=== PATIENT | female | born 1995 | race Caucasian/White ===

== ENCOUNTER 2016-03-25 10:19 | Day surgery (SDC) | payer OTHER ==
[2016-03-25] VITALS (33 sets, daily range): BP systolic 101–119; BP diastolic 56–76; PULSE 64–88; RESP 8–26; Ht 162.6 cm; Wt 45.9 kg
[~2016-03-25] VITALS: Ht 162.6 cm; Wt 45.9 kg
[~2016-03-25 10:19] MED LIST: ACET500C5 PO; AZIT250T94 PO; CEFAZOLIN 2 GM/50 ML (PMX) 50 ML IVPB SCH; D-ME473S2 PO; FER325 PO; LIPA1CAP6 PO; OMEP40CA6 PO; ONDA4TAB96 PO; SOD CHLORIDE 0.9% 1,000 ML IV SCH
[2016-03-25] MEDS ORDERED: BUPIVACAINE 0.25% (MPF) 30 ML INJ ONE (10:30)
[2016-03-25] MEDS ORDERED: FER325 PO (10:46)
[2016-03-25] MEDS ORDERED: FENTAnyl 50 MCG/ML VIAL ONE (12:32)
[2016-03-25] MEDS ORDERED: PROPOFOL 20 ML ONE (12:32)
[2016-03-25] MEDS ORDERED: SUCCINYLCHOLINE CHLORIDE 100 MG/5 ML SYG IV ONE (12:32)
[2016-03-25] MEDS ORDERED: ROCURONIUM 50 MG INJ ONE (12:32)
[2016-03-25] MEDS ORDERED: ONDANSETRON 4 MG INJ ONE (12:32)
[2016-03-25] MEDS ORDERED: CEFAZOLIN 1 GM INJ ONE (12:32)
[2016-03-25] MEDS ORDERED: DEXAMETHASONE 4 MG/ML 1 ML INJ ONE (12:34)
[2016-03-25] MEDS ORDERED: KETOROLAC 30 MG INJ ONE (12:40)
[2016-03-25] MEDS ORDERED: HYDROmorphONE (0.2 MG/ML) 10ML SYG IV PRN ×2 (13:30)
[2016-03-25] MEDS ORDERED: ONDANSETRON 4 MG INJ IV PRN ×2 (13:30→18:30)
[2016-03-25] MEDS ORDERED: FENTAnyl 50 MCG/ML VIAL IV PRN (13:30)
[2016-03-25] MEDS ORDERED: BUPIVACAINE 0.25% (MPF) 30 ML INJ INJ ONE (13:30)
[2016-03-25] MEDS ORDERED: MEPERIDINE 25 MG INJ IV PRN (13:30)
[2016-03-25] MEDS ORDERED: HYDROCODONE/APAP (5/325) TAB PO ONE (14:00)
[2016-03-25] MEDS: HYDROmorphONE (0.2 MG/ML) 10ML SYG IV PRN ×2 (14:12→14:27)
[2016-03-25] MEDS: FENTAnyl 50 MCG/ML VIAL IV PRN ×2 (14:32→15:23)
--- NOTE | 2016-03-25 15:49 | OPR ---
DATE OF OPERATION: 03/25/2016 INDICATION: This is a 20-year-old female with a history of gallstone pancreatitis. She is having e lective surgery to remove her gallbladder. Risks, alternatives, benefits and personnel were discuss ed with the patient. The patient expressed understanding and consents to the operation. PREOPERATIVE DIAGNOSES: Gallstone pancreatitis. POSTOPERATIVE DIAGNOSES: Gallstone pancreatitis. OPERATION: Laparoscopic cholecystectomy. SURGEON: Maritza Onofre MD SPECIMENS: Gallbladder. COMPLICATIONS: None. ANESTHESIA: General. PROCEDURE: The patient was taken to the OR and prepped and draped in the usual sterile fashion. Knapp rgical timeout was performed. IV antibiotics were given. Infraumbilical incision was made transver sely with a 15 blade. Dissection cautery was carried down to the fascia which was divided with curv ed Dowd scissors. An 0 Vicryl U-stitch was placed into the fascia. Balloon Andrew trocar was intro duced. Pneumoperitoneum was established. Midepigastric 12 mm optical trocar right upper quadrant. Five mm optical trocars are placed under direct visualization. Upon initial inspection, there were some adhesions to the gallbladder which were taken down bluntly. The cystic duct was identified. The critical view was established. The cystic duct and cystic artery are divided using a 35 mm Eche anika vascular load stapler. The gallbladder was taken off the gallbladder bed. There was good hemos tasis. Gallbladder was retrieved using an EndoCatch bag. Ports were removed under direct visualiza tion, 0 Vicryl U-stitch was tied down. Skin was closed using skin gordy. Local anesthesia was in jected. Dry dressing was applied. Dictated By: MARITZA ONOFRE MD SB/DANI Conf#: [id number] DID#: [id number]
[2016-03-25] MEDS ORDERED: HYDROmorphONE 1 MG/ML SYG IV PRN (18:20)
[2016-03-25] MEDS ORDERED: ACETAMINOPHEN 500 MG TAB PO PRN (18:30)
[2016-03-25] MEDS: D5W-0.45 NACL + KCL 20 MEQ 1,000 ML IV SCH (18:36)
--- NOTE | 2016-03-25 18:42 | HP ---
DATE OF ADMISSION: 03/25/2016 CHIEF COMPLAINT AND HISTORY OF PRESENT ILLNESS: The patient is a 21-year-old female with a history of recurrent biliary colic and possible gallstone pancreatitis. The patient was seen by Dr. Onofre as an outpatient and was diagnosed with gallstone pancreatitis. The patient was brought into hospital today. The patient underwent MRI of the abdomen on 07/17/2015 which revealed partially sludge-fill ed gallbladder. At that time there was unremarkable MRI appearance of the pancreas. The patient u nderwent laparoscopic cholecystectomy today and did have significant postoperative pain and therefor e could not be discharged home. The patient is being admitted for pain control and further manageme nt. The patient denied any chest pain. No reported shortness of breath, no reported fever or chill s. No recent episode of acute cholecystitis. No reported cough, headache, dizziness, syncope. REVIEW OF SYSTEMS: Rest of review of systems unremarkable. PAST MEDICAL HISTORY: As a child used to go to [facility] and had a diagnosis of ____ disease, but subseq uently told me that she does not have any chronic illnesses and has been ruled out for ____ disease and is not following up at [facility] anymore. MEDICATIONS: The patient was on iron supplement. ALLERGIES: PREVACID. SOCIAL HISTORY: No smoking, no alcohol. PHYSICAL EXAMINATION: GENERAL: The patient is conscious, awake, alert. VITAL SIGNS: Temperature 99, pulse 80, respirations 16, blood pressure 112/69, O2 sat 100% on room air. HEENT: No eye discharge or redness. Extraocular movement intact. Oropharynx clear. NECK: No mass. CHEST: Fairly clear. No use of accessory muscles. CARDIOVASCULAR: S1, S2 normal. No murmur. ABDOMEN: Soft. The patient is status post laparoscopic cholecystectomy. EXTREMITIES: No leg edema. NEUROLOGIC: The patient is awake, alert, fairly oriented with no gross focal deficit. LABORATORY DATA: Urine test negative. WBC 5.9, hemoglobin 10.8. Sodium 138, potassium 3 .9, BUN 12, creatinine 0.7. Coagulation profile normal. IMPRESSION: Symptomatic gallstones with history of gallstone pancreatitis, status post laparoscopic cholecystectomy. The patient will be started on clear liquid diet and will be given IV fluid, IV Toradol, IV Dilaudid, Tylenol and will use SCD For deep venous thrombosis prophylaxis. The patient is advised to continue followup with her PMD for anemia. Patient's diet will be advanced slowly. F gino recommendations will depend on patient's hospital course. The patient continues to do well. We will also start her on [place] in the a.m. and if her pain is well controlled with oral narcotics, she will be discharged home tomorrow. Dictated By: LINNEA GERBER/DANI Conf#: [id number] DID#: [id number]
[2016-03-25] MEDS: KETOROLAC 30 MG INJ IV PRN (20:25)
[2016-03-25] MEDS: HYDROmorphONE 1 MG/ML SYG IV PRN (22:27)
[2016-03-26] MEDS: HYDROmorphONE 1 MG/ML SYG IV PRN (02:34)
[2016-03-26 04:15] VITALS: BP 109/68; PULSE 80
[2016-03-26] MEDS: KETOROLAC 30 MG INJ IV PRN (04:24)
[2016-03-26] MEDS: D5W-0.45 NACL + KCL 20 MEQ 1,000 ML IV SCH ×2 (04:24→16:34)
--- NOTE | 2016-03-26 08:42 | PN ---
Date/Time of Note Date/Time of Note DATE: 03/26/16 TIME: 08:41 Assessment/Plan VTE Prophylaxis VTE Prophylaxis Intervention: ambulation, SCD's Lines/Catheters IV Catheter Type (from Nrsg): Peripheral IV Urinary Cath still in place: No Assessment/Plan Chief Complaint/Hosp Course s/p lap destiny admitted for pain control Problems: Assessment/Plan d/c today Subjective 24 Hr Interval Summary Free Text/Dictation pain control improved, doing well, tolerating diet Exam/Review of Systems Vital Signs Vitals Vital Signs Date Time Temp Pulse Resp B/P Pulse Ox O2 Delivery O2 Flow Rate FiO2 03/26/16 04:15 98.0 80 109/68 97 Room Air 03/25/16 23:30 18 03/25/16 22:00 2.0 Intake and Output 03/25/16 03/25/16 03/26/16 15:00 23:00 07:00 Intake Total 450 ml 1700 ml Output Total 5 ml Balance 445 ml 1700 ml Exam abdomen soft c/d/i Medications Medications Current Medications Potassium Chloride/Dextrose/ Sod Cl (D5-1/2ns + KCl 20 Meq) 1,000 ml @ 100 mls/ hr Q10H IV Last administered on 03/26/16 04:24; Admin Dose 100 MLS/HR; Start at 18:30 Ketorolac Tromethamine (Toradol) 30 mg Q6H PRN IV PAIN Last administered on 03/26 04:24; Admin Dose 30 MG; Start 03/25/16 at 18:30; Stop 03/28/16 at 18:29 Hydromorphone HCl (Dilaudid) 1 mg Q4H PRN IV PAIN Last administered on 02:34; Admin Dose 1 MG; Start 03/25/16 at 18:30 Acetaminophen (Tylenol Tab) 500 mg Q4H PRN PO PAIN AND OR ELEVATED TEMP; Start 03/25/16 at 18:30 Ondansetron HCl (Zofran Inj) 4 mg Q4H PRN IV NAUSEA AND/OR VOMITING Last administered on 03/25/16 20:24; Admin Dose 4 MG; Start 03/25/16 at 18:30 Acetaminophen/ Hydrocodone Bitart ([place] (5/325)) 1 tab Q4H PRN PO PAIN LEVEL 4 -6; Start 03/25/16 at 18:30 Hydromorphone HCl (Dilaudid) 0.5 mg Q4H PRN IV PAIN LEVEL 1-5 Last administered on 03/25/16t 18:37; Admin Dose 0.5 MG; Start 03/25/16 at 18:20 Lay HOLLINGSWORTH Mar 26, 2016 08:42
[2016-03-26] MEDS: HYDROCODONE/APAP (5/325) TAB PO PRN ×2 (08:44→16:33)
[2016-03-26 09:04] VITALS: BP 102/57; RESP 20
--- NOTE | 2016-03-26 17:18 | DS ---
Date/Time of Note Date/Time of Note DATE: 03/26/16 TIME: 17:18 Discharge Summary Admission/Discharge Info Admit Date/Time Discharge Date/Time Hospital Course s/p carlos dixon admitted for pain control Home Meds Reported Medications Ferrous Sulfate* (Ferrous Sulfate*) 325 Mg Tabec, 325 MG PO DAILY, TAB 03/25/16 Discontinued Reported Medications Ferrous Sulfate* (Ferrous Sulfate*) 325 Mg Tabec, 325 MG PO BID, TAB 08/13/15 Ondansetron Hcl* (Ondansetron Hcl*) 4 mg -ODT Tab.disper, 4 MG PO Q4H Y for NAUSEA AND OR VOMITING, TAB 08/13/15 Yuihtr-Ydaexevs-Nydnaia* (Creon DR* 24,000) 24,000 L-76,000-120,000 Unit Capsule.dr, 1 CAP PO WITH MEALS, CAP 08/13/15 Omeprazole* (Omeprazole*) 40 Mg Capsule.dr, 40 MG PO DAILY, CAP 11/06/14 Discontinued Scripts Acetaminophen* (Tylophen*) 500 Mg Capsule, 1 CAP PO Q6H Y for PAIN AND OR ELEVATED TEMP, #15 CAP Prov:OBI LUNA MD 10/12/15 Dextromethorphan Hb-Promethazine Hcl* (Promethazine DM* Syrup) 473 Ml Syrup, 5 ML PO Q6 Y for COUGH for 5 Days, ML Prov:OBI LUNA MD 10/12/15 Azithromycin* (Zithromax*) 250 Mg Tablet, 250 MG PO .DionPACK DIRECTED, #6 TAB TAKE 500 MG (2 TABS) THE FIRST DAY THEN 250 MG (1 TAB) DAYS 2-5 Prov:OBI LUNA MD 10/12/15 DAX DEMARCO Mar 26, 2016 17:18
--- NOTE | 2016-03-26 17:20 | PDOCDIS ---
Discharge Instructions CONDITION Patient Condition: Stable HOME CARE INSTRUCTIONS: Diet Instructions: Low Fat /Cholesterol ACTIVITY: Activity Restrictions: Slowly Increase Activity Rest between Activity Avoid heavy lifting Do not operate Machinery No Weight Bearing Bathing Restrictions: Sponge Bath FOLLOW UP/APPOINTMENTS Appointments FU with primary x 1 week FU with Surgery as recommended Call 911 or go to nearest hospital if symptoms get worse.Patient verbalized understanding dc instructions. USMAN Rivers/staff DAX DEMARCO Mar 26, 2016 17:20
[2016-03-26] MEDS ORDERED: DOCU-144 PO (17:21)
== END 2016-03-26 18:05 | disposition home or self-care (01) ==
LOC: SDS 10:19 → MS1 17:40 → SDS 03-26 18:05
PROVIDERS: ATTEND Surgery
DX: K85.10 Biliary acute pancreatitis without necrosis or infection (principal)
CPT/HCPCS: 47562; 84703; 88304; J0330; J0690; J1100; J1170; J1885; J2405; J3010; J3480; Z7512; Z7610

== ENCOUNTER 2016-10-06 17:46 | Emergency (ER) | payer OTHER ==
[~2016-10-06] VITALS: Ht 162.6 cm; Wt 50.0 kg
[~2016-10-06 17:46] MED LIST changes: -ACET500C5 PO; -AZIT250T94 PO; -CEFAZOLIN 2 GM/50 ML (PMX) 50 ML IVPB SCH; -D-ME473S2 PO; +DOCU-144 PO; -LIPA1CAP6 PO; -OMEP40CA6 PO; -ONDA4TAB96 PO; -SOD CHLORIDE 0.9% 1,000 ML IV SCH
[2016-10-06 17:52] VITALS: Ht 162.6 cm; Wt 50.0 kg
[2016-10-06] MEDS ORDERED: ONDANSETRON 4 MG INJ IV STA (18:28)
[2016-10-06] MEDS ORDERED: morphine 2 MG INJ IV STA (18:28)
[2016-10-06] MEDS ORDERED: SOD CHLORIDE 0.9% 1,000 ML IV STA (18:28)
[2016-10-06] MEDS ORDERED: FAMOTIDINE 20 MG TAB PO STA (18:28)
--- NOTE | 2016-10-06 18:51 | ERD ---
ER Documentation Chief Complaint Date/Time DATE: 10/06/16 TIME: 18:35 Chief Complaint pt bib self with c/o abd pain starting a few days ago, hx ulcers HPI 21-year-old female presents here in emergency department for complaints of epigastric pain and generalized abdominal pain that started 2 days ago. Patient has history of gastritis and gastric ulcer hemorrhage from before, and is worried about it. Patient is supposed to see a GI specialist but is still waiting for approval. Patient's complaining of pain sharp pain, 8/10 scale, accompanying the symptoms. Patient has been having nausea but denies any vomiting. Patient denies any diarrhea or constipation. Patient denies any black stool or blood in the stool. Patient denies any fever or chills. Patient currently takes antacid medication she cannot remember the name. ROS All systems reviewed and are negative except as per history of present illness. Medications Home Meds Active Scripts Hydrocodone/Acetaminophen (Saxe 5-325 Tablet) 1 Each Tablet, 1 TAB PO Q6H Y for SEVERE PAIN LEVEL 7-10, #20 TAB Prov:RACHELE HUGHES NP 10/06/16 Ondansetron (Ondansetron Odt) 4 Mg Tab.rapdis, 4 MG PO Q8 Y for NAUSEA AND/OR VOMITING, #30 TAB Prov:RACHELE HUGHES NP 10/06/16 Magaldrate/Simethicone* (Mylanta*) 355 Ml Susp, 30 ML PO QID Y for GASTROINTESTINAL UPSET, #1 BOTTLE Prov:RACHELE HUGHES NP 10/06/16 Docusate Sodium* (Colace*) 100 Mg Capsule, 100 MG PO BID, #30 CAP Prov:DAX DEMARCO 03/26/16 Reported Medications Ferrous Sulfate* (Ferrous Sulfate*) 325 Mg Tabec, 325 MG PO DAILY, TAB 03/25/16 Allergies Allergies: Coded Allergies: lansoprazole (Verified Allergy, Intermediate, BODY RASH , 03/25/16) PMhx/Soc History of Surgery: Yes (r ovary surgery, cholecystectomy) Anesthesia Reaction: No Hx Neurological Disorder: No Hx Respiratory Disorders: No Hx Cardiac Disorders: No Hx Psychiatric Problems: No Hx Miscellaneous Medical Probl: Yes (gastritis) Hx Alcohol Use: No Hx Substance Use: No Hx Tobacco Use: No FmHx Family History: No coronary disease, No diabetes, No other Physical Exam Vitals Vital Signs Date Time Temp Pulse Resp B/P Pulse Ox O2 Delivery O2 Flow Rate FiO2 10/06/16 17:52 97.9 94 16 134/84 99 Physical Exam GENERAL: The patient is well developed and appropriate for usual state of health, in no apparent distress. CHEST: Clear to auscultation bilaterally. There are no rales, wheezes or rhonchi. HEART: Regular rate and rhythm. No murmurs, clicks, rubs or gallops. No S3 or S4. ABDOMEN: Soft, nontender and nondistended. Good bowel sounds. No rebound or guarding. No gross peritonitis. No gross organomegaly or masses. No Abreu sign or McBurney point tenderness. BACK: No midline or flank tenderness. EXTREMITIES: Equal pulses bilaterally. There is no peripheral clubbing, cyanosis or edema. No focal swelling or erythema. Full range of motion. Grossly neurovascularly intact. NEURO: Alert and oriented. Cranial nerves 2-12 intact. Motor strength in all 4 extremities with 5/5 strength. Sensation grossly intact. Normal speech and gait. SKIN: There is no apparent rash or petechia. The skin is warm and dry. HEMATOLOGIC AND LYMPHATIC: There is no evidence of excessive bruising or lymphedema. No gross cervical, axillary, or inguinal lymphadenopathy. Result Diagram: 10/06/16189910/06/161899 Results 24 hrs Laboratory Tests Test 10/06/16 19:00 White Blood Count 6.510^3/ul Red Blood Count 4.3110^6/ul Hemoglobin 11.6g/dl Hematocrit 36.1% Mean Corpuscular Volume 83.8fl Mean Corpuscular Hemoglobin 26.9pg Mean Corpuscular Hemoglobin Concent 32.1g/dl Red Cell Distribution Width 13.8% Platelet Count 42432^3/UL Mean Platelet Volume 9.2fl Neutrophils % 52.4% Lymphocytes % 32.0% Monocytes % 9.9% Eosinophils % 4.8% Basophils % 0.6% Nucleated Red Blood Cells % 0.0/100WBC Neutrophils # (Manual) 3.410^3/ul Lymphocytes # 2.110^3/ul Monocytes # 0.610^3/ul Eosinophils # 0.310^3/ul Basophils # 0.010^3/ul Nucleated Red Blood Cells # 0.010^3/ul Urine Color YELLOW Urine Clarity CLOUDY Urine pH 7.0 Urine Specific [place] 1.019 Urine Ketones NEGATIVEmg/dL Urine Nitrite NEGATIVEmg/dL Urine Bilirubin NEGATIVEmg/dL Urine Urobilinogen NEGATIVEmg/dL Urine Leukocyte Esterase NEGATIVELeu/ul Urine Microscopic RBC 1/HPF Urine Microscopic WBC 1/HPF Urine Squamous Epithelial Cells FEW/HPF Urine Amorphous Crystals FEW/HPF Urine Mucus FEW/HPF Urine Hemoglobin NEGATIVEmg/dL Urine Glucose NEGATIVEmg/dL Urine Total Protein NEGATIVEmg/dl Sodium Level 137mmol/L Potassium Level 3.5mmol/L Chloride Level 101mmol/L Carbon Dioxide Level 28mmol/L Anion Gap 12 Blood Urea Nitrogen 11mg/dl Creatinine 0.79mg/dl Glucose Level 85mg/dl Calcium Level 9.0mg/dl Total Bilirubin 0.2mg/dl Direct Bilirubin 0.00mg/dl Indirect Bilirubin 0.2mg/dl Aspartate Amino Transf (AST/SGOT) 30IU/L Alanine Aminotransferase (ALT/SGPT) 30IU/L Alkaline Phosphatase 42IU/L Total Protein 7.5g/dl Albumin 4.4g/dl Globulin 3.10g/dl Albumin/Globulin Ratio 1.41 Lipase 89U/L Current Medications Medications (Trade) Dose Ordered Sig/Chrissy Route PRN Reason Start Time Stop Time Status Last Admin Dose Admin Sodium Chloride (NS) 1,000 ml @ 1,000 mls/hr Q1H STAT IV 10/06/16 18:28 10/06/16 19:27 DC 10/06/16 19:03 Morphine Sulfate (morphine) 2 mg ONCE STAT IV 10/06/16 18:28 10/06/16 18:31 DC 10/06/16 19:03 Ondansetron HCl (Zofran Inj) 4 mg ONCE STAT IV 10/06/16 18:28 10/06/16 18:31 DC 10/06/16 19:03 Famotidine (Pepcid) 20 mg ONCE STAT PO 10/06/16 18:28 10/06/16 18:31 DC 10/06/16 19:03 IV Flush 10 ml 10 ml STK-MED ONCE .ROUTE 10/06/16 20:16 10/06/16 20:17 DC 10/06/16 20:40 Sodium Chloride (NS) 100 ml @ ud STK-MED ONCE .ROUTE 10/06/16 20:16 10/06/16 20:17 DC 10/06/16 20:40 Iohexol (Omnipaque 300mg/ ml) 150 ml STK-MED ONCE .ROUTE 10/06/16 20:16 10/06/16 20:17 DC 10/06/16 20:40 Miscellaneous Medication (Gi Cocktail (2)) 40 ml ONCE ONCE PO 10/06/16 21:30 10/06/16 21:31 Patient was given medication for pain and Pepcid here in emergency department, after treatment, patient verbalized feeling much better. Patient's pain is improved. Patient was given Zofran here in the emergency department. After treatment, patient was able to tolerate po fluids here in the emergency department without any vomiting. There is no signs and symptoms of dehydration. Normal saline IV bolus was given here in emergency department for rehydration, patient tolerated IV fluids. GI cocktail given here in emergency department, verbalized much better, denies any pain afterwards. PROCEDURE: CT Abdomen and Pelvis with contrast. CLINICAL INDICATION: Abdominal pain TECHNIQUE: CT scan of the abdomen and pelvis with contrast was performed on a multidetector high-resolution CT scanner. Coronal and sagittal reformatted images were obtained from the axial source images. Images were reviewed on a high-resolution PACS workstation. 80 cc of Isovue 300 iodinated contrast was administered intravenously without reported complication. The total exam CTDI equals 4 mGy and the total exam DLP equals 214 mGy-cm. One or more of the following dose reduction techniques were used: Automated exposure control, Adjustment of the mA and/or kV according to patient size, and/or use of iterative reconstruction technique. COMPARISON: None. FINDINGS: The lung bases are clear. The liver, pancreas, spleen, and adrenals are grossly unremarkable. Status post cholecystectomy. Mild intrahepatic and extrahepatic biliary dilatation. No hydronephrosis. Punctate 1 mm nonobstructing left lower renal pole stone. No small bowel obstruction. There is a paucity of intra-abdominal fat which limits the evaluation of the bowel. The appendix cannot be definitively visualized. No significant retroperitoneal lymphadenopathy, ascites or evidence of pneumoperitoneum. Tampon visualized within the vagina. IMPRESSION: Punctate 1 mm nonobstructing left lower renal pole stone. Mild intrahepatic and extrahepatic biliary dilatation is probably physiologic after cholecystectomy. There is a paucity of intra-abdominal fat which limits the evaluation of the bowel. The appendix cannot be definitively visualized. If there is suspicion for acute appendicitis, recommend short term follow up CT imaging with oral and intravenous contrast RPTAT: AA .Gary Randhawa MD, MD Date Time Electronically viewed and signed by .Gary Randhawa MD, MD on 10/06/2016 21:02 .T/ CC: RACHELE HUGHES TASSEL SNIPPER Procedures/MDM Medical Decision Making: Patient's symptoms of abdominal pain nonspecific at this time most likely from her gastritis. Patient has an appointment with a GI specialist but is still pending at this time. Currently has been taking her antacid medication, was advised to continue this. There is low suspicion for abdominal emergencies at this time. Patients abdominal exam is normal at this time. Patients radiology exam does not show any abdominal emergencies at this time. There is low suspicion for appendicitis, cholecystitis, abdominal aortic aneurysms or peritonitis at this time. There is low suspicion for sepsis. Patient appears well and is hemodynamically stable. Disposition: Home. Condition: Stable Prescription Mylanta, Saxe, Zofran Instructions: Patient is advised to take medications as prescribed. Patient is advised to rest, increase fluid intake and do brat diet for next 1-2 days and progress as tolerated. Patient is advised that if symptoms are worse, severe abdominal pain, uncontrolled vomiting, high fever, severe flank pain, worst signs and symptoms, to return to the emergency department immediately. Otherwise, patient can follow up with primary care doctor in 5-7 days. see A GI specialist for further evaluation. Departure Diagnosis: Primary Impression: Abdominal pain Abdominal location: epigastric Qualified Code: R10.13 - Epigastric pain Condition: Stable Patient Instructions: Epigastric Pain (Uncertain Cause) Additional Instructions: Patient is advised to take medications as prescribed. Patient is advised to rest, increase fluid intake and do brat diet for next 1-2 days and progress as tolerated. Patient is advised that if symptoms are worse, severe abdominal pain , uncontrolled vomiting, high fever, severe flank pain, worst signs and symptoms , to return to the emergency department immediately. Otherwise, patient can follow up with primary care doctor in 5-7 days. see A GI specialist for further evaluation. RACHELE HUGHES NP Oct 06, 2016 18:51
[2016-10-06 19:47] LABS: BASOPHILS % 0.6 % (0.0-2.0); EOSINOPHILS # 0.3 10^3/ul (0.0-0.5); EOSINOPHILS % 4.8 % (0.0-7.0); HEMATOCRIT 36.1 % (37.0-47.0); HEMOGLOBIN 11.6 g/dl (12.0-16.0); LYMPHOCYTES # 2.1 10^3/ul (0.8-2.9); MEAN CORPUSCULAR HEMOGLOBIN 26.9 pg (29.0-33.0); MEAN CORPUSCULAR HGB CONC 32.1 g/dl (32.0-37.0); MEAN CORPUSCULAR VOLUME 83.8 fl (82.0-101.0); MEAN PLATELET VOLUME 9.2 fl (7.4-10.4); MONOCYTE # 0.6 10^3/ul (0.3-0.9); MONOCYTES % 9.9 % (0.0-11.0); NEUTROPHILS % 52.4 % (39.0-77.0); PLATELET COUNT 240 10^3/UL (140-415); RED BLOOD COUNT 4.31 10^6/ul (4.20-5.40); RED CELL DISTRIBUTION WIDTH 13.8 % (11.5-14.5); WHITE BLOOD COUNT 6.5 10^3/ul (4.8-10.8)
[2016-10-06 20:09] LABS: ALBUMIN 4.4 g/dl (3.3-4.9); ALBUMIN/GLOBULIN RATIO 1.41; BILIRUBIN,INDIRECT 0.2 mg/dl (0-1.1); BILIRUBIN,TOTAL 0.2 mg/dl (0.2-1.3); CREATININE 0.79 mg/dl (0.44-1.00); POTASSIUM 3.5 mmol/L (3.5-5.1); TOTAL PROTEIN 7.5 g/dl (6.1-8.1)
[2016-10-06 20:12] LABS: ADD UMIC YES; UR AMORPHOUS CRYSTAL FEW /HPF (NONE SEEN); UR ASCORBIC ACID NEGATIVE (NEGATIVE); UR BILIRUBIN (Dip) NEGATIVE (NEGATIVE); UR BLOOD (Dip) NEGATIVE (NEGATIVE); UR CLARITY CLOUDY (CLEAR); UR COLOR YELLOW (YELLOW); UR GLUCOSE (Dip) NEGATIVE (NEGATIVE); UR KETONES (Dip) NEGATIVE (NEGATIVE); UR LEUKOCYTE ESTERASE (Dip) NEGATIVE Leu/ul (NEGATIVE); UR MUCUS FEW /HPF (NONE SEEN); UR NITRITE (Dip) NEGATIVE (NEGATIVE); UR RBC 1 /HPF (0-5); UR SPECIFIC GRAVITY (Dip) 1.019 (1.003-1.030); UR SQUAMOUS EPITHELIAL CELL FEW /HPF (FEW); UR TOTAL PROTEIN (Dip) NEGATIVE (NEGATIVE); UR UROBILINOGEN (Dip) NEGATIVE (NEGATIVE)
[2016-10-06] MEDS ORDERED: SOD CHLORIDE 0.9% 100 ML ONE (20:16)
[2016-10-06] MEDS ORDERED: IOHEXOL 300MG/ML 150 ML BTL ONE (20:16)
--- NOTE | 2016-10-06 21:02 | RADRPT ---
PROCEDURE: CT Abdomen and Pelvis with contrast. CLINICAL INDICATION: Abdominal pain TECHNIQUE: CT scan of the abdomen and pelvis with contrast was performed on a multidetector high-r esolution CT scanner. Coronal and sagittal reformatted images were obtained from the axial source im ages. Images were reviewed on a high-resolution PACS workstation. 80 cc of Isovue 300 iodinated cont rast was administered intravenously without reported complication. The total exam CTDI equals 4 mGy and the total exam DLP equals 214 mGy-cm. One or more of the following dose reduction techniques w ere used: Automated exposure control, Adjustment of the mA and/or kV according to patient size, and/ or use of iterative reconstruction technique. COMPARISON: None. FINDINGS: The lung bases are clear. The liver, pancreas, spleen, and adrenals are grossly unremarkable. Status post cholecystectomy. Mild intrahepatic and extrahepatic biliary dilatation. No hydronephrosis. Punctate 1 mm nonobstructing left lower renal pole stone. No small bowel obstruction. There is a paucity of intra-abdominal fat which limits the evaluation of the bowel. The appendix cannot be definitively visualized. No significant retroperitoneal lymphadenopathy, ascites or evidence of pneumoperitoneum. Tampon visu alized within the vagina. IMPRESSION: Punctate 1 mm nonobstructing left lower renal pole stone. Mild intrahepatic and extrahepatic biliary dilatation is probably physiologic after cholecystectomy. There is a paucity of intra-abdominal fat which limits the evaluation of the bowel. The appendix can not be definitively visualized. If there is suspicion for acute appendicitis, recommend short term f ollow up CT imaging with oral and intravenous contrast RPTAT: AA .Gary Randhawa MD, Date Time Electronically viewed and signed by .Gary Randhawa MD, MD on 10/06/2016 21:02 .T/
[2016-10-06] MEDS ORDERED: MAG-19 PO (21:12)
[2016-10-06] MEDS ORDERED: HYDR-906 PO (21:12)
[2016-10-06] MEDS ORDERED: ONDA4TAB14 PO (21:12)
[2016-10-06 21:24] VITALS: BP 119/77; PULSE 81; RESP 18
[2016-10-06] MEDS ORDERED: LIDOCAINE/MYLANTA 40 ML BTL PO ONE (21:30)
== END 2016-10-06 21:25 | disposition home or self-care (01) ==
LOC: FTE 17:46
DX: R10.13 Epigastric pain (principal)
CPT/HCPCS: 36415; 74177; 80053; 81001; 83690; 85025; 96374; 96375; J2270; J2405; J7030; Q9967; Z7502; Z7610

== ENCOUNTER 2016-10-27 16:53 | Emergency (ER) | payer OTHER ==
[~2016-10-27] VITALS: Ht 157.5 cm; Wt 60.0 kg
[~2016-10-27 16:53] MED LIST changes: +HYDR-906 PO; +MAG-19 PO; +ONDA4TAB14 PO
[2016-10-27 16:56] VITALS: Ht 157.5 cm; Wt 60.0 kg
[2016-10-27] MEDS ORDERED: KETOROLAC 30 MG INJ IV STA (19:33)
[2016-10-27] MEDS ORDERED: ONDANSETRON 4 MG INJ IV STA (19:33)
[2016-10-27] MEDS ORDERED: SOD CHLORIDE 0.9% 500 ML IV STA (19:33)
[2016-10-27 19:56] LABS: BASOPHILS % 0.5 % (0.0-2.0); EOSINOPHILS # 0.3 10^3/ul (0.0-0.5); EOSINOPHILS % 5.8 % (0.0-7.0); HEMATOCRIT 37.4 % (37.0-47.0); HEMOGLOBIN 12.4 g/dl (12.0-16.0); LYMPHOCYTES # 1.5 10^3/ul (0.8-2.9); LYMPHOCYTES % 27.6 % (15.0-51.0); MEAN CORPUSCULAR HEMOGLOBIN 28.3 pg (29.0-33.0); MEAN CORPUSCULAR HGB CONC 33.2 g/dl (32.0-37.0); MEAN CORPUSCULAR VOLUME 85.4 fl (82.0-101.0); MEAN PLATELET VOLUME 8.9 fl (7.4-10.4); MONOCYTE # 0.5 10^3/ul (0.3-0.9); MONOCYTES % 9.1 % (0.0-11.0); NEUTROPHILS % 56.8 % (39.0-77.0); PLATELET COUNT 286 10^3/UL (140-415); RED BLOOD COUNT 4.38 10^6/ul (4.20-5.40); RED CELL DISTRIBUTION WIDTH 14.3 % (11.5-14.5); WHITE BLOOD COUNT 5.5 10^3/ul (4.8-10.8)
[2016-10-27 20:11] LABS: ADD UMIC YES; UR AMORPHOUS CRYSTAL FEW /HPF (NONE SEEN); UR ASCORBIC ACID NEGATIVE (NEGATIVE); UR BACTERIA FEW /HPF (NONE SEEN); UR BILIRUBIN (Dip) NEGATIVE (NEGATIVE); UR BLOOD (Dip) NEGATIVE (NEGATIVE); UR CLARITY CLOUDY (CLEAR); UR COLOR YELLOW (YELLOW); UR GLUCOSE (Dip) NEGATIVE (NEGATIVE); UR KETONES (Dip) NEGATIVE (NEGATIVE); UR LEUKOCYTE ESTERASE (Dip) NEGATIVE Leu/ul (NEGATIVE); UR MUCUS FEW /HPF (NONE SEEN); UR NITRITE (Dip) NEGATIVE (NEGATIVE); UR RBC 3 /HPF (0-5); UR SPECIFIC GRAVITY (Dip) 1.012 (1.003-1.030); UR SQUAMOUS EPITHELIAL CELL FEW /HPF (FEW); UR TOTAL PROTEIN (Dip) NEGATIVE (NEGATIVE); UR UROBILINOGEN (Dip) NEGATIVE (NEGATIVE)
[2016-10-27 20:23] LABS: ALBUMIN 4.5 g/dl (3.3-4.9); ALBUMIN/GLOBULIN RATIO 1.18; CALCIUM 9.2 mg/dl (8.4-10.2); CREATININE 0.76 mg/dl (0.44-1.00); POTASSIUM 3.8 mmol/L (3.5-5.1); TOTAL PROTEIN 8.3 g/dl (6.1-8.1)
[2016-10-27] MEDS ORDERED: morphine 4 MG/ML VIAL IV STA (20:41)
--- NOTE | 2016-10-27 20:52 | ERA ---
ER Documentation Chief Complaint Date/Time DATE: 10/27/16 TIME: 20:48 Chief Complaint ap with vomiting x 2 hrs HPI Otherwise healthy 21-year-old female presenting with the chief complaints of epigastric pain. Patient has a history of recurrent acute pancreatitis. 3 in the past 4 years. History of cholecystectomy. Patient states that this feels like pancreatitis again. Decreased decreased p.o. tolerance. Vomiting 4 in the past 12 hours. Able to tolerate liquids. Denies fever, headache, meningismus, constipation, diarrhea, or chills. Patient has no other complaints and describes no other associated manifestations. Nursing notes have been reviewed and are consistent with history given. ROS All systems reviewed and are negative except as per history of present illness. Medications Home Meds Active Scripts Hydrocodone/Acetaminophen ([place] 5-325 Tablet) 1 Each Tablet, 1 TAB PO Q6H Y for SEVERE PAIN LEVEL 7-10, #20 TAB Prov:RACHELE HUGHES NP 10/06/16 Ondansetron (Ondansetron Odt) 4 Mg Tab.rapdis, 4 MG PO Q8 Y for NAUSEA AND/OR VOMITING, #30 TAB Prov:RACHELE HUGHES NP 10/06/16 Magaldrate/Simethicone* (Mylanta*) 355 Ml Susp, 30 ML PO QID Y for GASTROINTESTINAL UPSET, #1 BOTTLE Prov:RACHELE HUGHES NP 10/06/16 Docusate Sodium* (Colace*) 100 Mg Capsule, 100 MG PO BID, #30 CAP Prov:DAX DEMARCO 03/26/16 Reported Medications Ferrous Sulfate* (Ferrous Sulfate*) 325 Mg Tabec, 325 MG PO DAILY, TAB 03/25/16 Allergies Allergies: Coded Allergies: lansoprazole (Verified Allergy, Intermediate, BODY RASH , 03/25/16) PMhx/Soc History of Surgery: Yes (gallbladder removal ) Anesthesia Reaction: No Hx Neurological Disorder: No Hx Respiratory Disorders: No Hx Cardiac Disorders: No Hx Psychiatric Problems: No Hx Miscellaneous Medical Probl: Yes (ulcer) Hx Alcohol Use: No Hx Substance Use: No Hx Tobacco Use: No Smoking Status: Never smoker Physical Exam Vitals Vital Signs Date Time Temp Pulse Resp B/P Pulse Ox O2 Delivery O2 Flow Rate FiO2 10/27/16 16:56 98.9 88 18 132/88 99 Physical Exam Const: [] Head: Atraumatic Eyes: Normal Conjunctiva ENT: Normal External Ears, Nose and Mouth. Neck: Full range of motion..~ No meningismus. Resp: Clear to auscultation bilaterally Cardio: Regular rate and rhythm, no murmurs Abd: Soft, non tender, non distended. Normal bowel sounds Skin: No petechiae or rashes Back: No midline or flank tenderness Ext: No cyanosis, or edema Neur: Awake and alert Psych: Normal Mood and Affect Result Diagram: 10/27/16194410/27/161944 Results 24 hrs Laboratory Tests Test 10/27/16 19:45 White Blood Count 5.510^3/ul Red Blood Count 4.3810^6/ul Hemoglobin 12.4g/dl Hematocrit 37.4% Mean Corpuscular Volume 85.4fl Mean Corpuscular Hemoglobin 28.3pg Mean Corpuscular Hemoglobin Concent 33.2g/dl Red Cell Distribution Width 14.3% Platelet Count 68972^3/UL Mean Platelet Volume 8.9fl Neutrophils % 56.8% Lymphocytes % 27.6% Monocytes % 9.1% Eosinophils % 5.8% Basophils % 0.5% Nucleated Red Blood Cells % 0.0/100WBC Neutrophils # (Manual) 3.110^3/ul Lymphocytes # 1.510^3/ul Monocytes # 0.510^3/ul Eosinophils # 0.310^3/ul Basophils # 0.010^3/ul Nucleated Red Blood Cells # 0.010^3/ul Urine Color YELLOW Urine Clarity CLOUDY Urine pH 7.0 Urine Specific [employer] 1.012 Urine Ketones NEGATIVEmg/dL Urine Nitrite NEGATIVEmg/dL Urine Bilirubin NEGATIVEmg/dL Urine Urobilinogen NEGATIVEmg/dL Urine Leukocyte Esterase NEGATIVELeu/ul Urine Microscopic RBC 3/HPF Urine Microscopic WBC 1/HPF Urine Squamous Epithelial Cells FEW/HPF Urine Amorphous Crystals FEW/HPF Urine Bacteria FEW/HPF Urine Mucus FEW/HPF Urine Hemoglobin NEGATIVEmg/dL Urine Glucose NEGATIVEmg/dL Urine Total Protein NEGATIVEmg/dl Sodium Level 141mmol/L Potassium Level 3.8mmol/L Chloride Level 102mmol/L Carbon Dioxide Level 27mmol/L Anion Gap 16 Blood Urea Nitrogen 8mg/dl Creatinine 0.76mg/dl Glucose Level 112mg/dl Calcium Level 9.2mg/dl Total Bilirubin 0.0mg/dl Direct Bilirubin 0.00mg/dl Indirect Bilirubin 0.0mg/dl Aspartate Amino Transf (AST/SGOT) 106IU/L Alanine Aminotransferase (ALT/SGPT) 185IU/L Alkaline Phosphatase 67IU/L Total Protein 8.3g/dl Albumin 4.5g/dl Globulin 3.80g/dl Albumin/Globulin Ratio 1.18 Lipase 125U/L Current Medications Medications (Trade) Dose Ordered Sig/Chrissy Route PRN Reason Start Time Stop Time Status Last Admin Dose Admin Sodium Chloride (NS) 500 ml @ 500 mls/hr Q1H STAT IV 10/27/16 19:33 10/27/16 20:32 DC 10/27/16 19:52 Ondansetron HCl (Zofran Inj) 4 mg ONCE STAT IV 10/27/16 19:33 10/27/16 19:34 DC 10/27/16 19:51 Ketorolac Tromethamine (Toradol) 30 mg ONCE STAT IV 10/27/16 19:33 10/27/16 19:34 DC 10/27/16 19:51 Morphine Sulfate 3 mg 3 mg ONCE STAT IV 10/27/16 20:41 10/27/16 20:42 DC 10/27/16 20:50 Sodium Chloride (NS) 500 ml @ 500 mls/hr Q1H ONCE IV 10/27/16 21:00 10/27/16 21:59 10/27/16 20:51 Procedures/MDM ..Otherwise healthy 21-year-old female and a mild distress presenting with a chief complaint of epigastric pain as described in history and physical examination. Labs were obtained and revealed elevated AST and ALT. Lipase was within normal limits. Ultrasound was obtained, read by the radiologist, given the following impression: Unremarkable. test was negative. Urine results were unremarkable. CMP: AST 106. ALT 185. Patient was given 1 L normal saline, 30 mg Toradol IV, and 4 mg of morphine IV with adequate relief of symptoms. Patient was evaluated and worked up for epigastric abdominal discomfort as described in history and physical examination. At this time I do not suspect acute pancreatitis, cholangitis, myocardial/Intestinal ischemia, pneumonia, hernia, or esophageal rupture. Most of her diagnosis is epigastric pain due to unknown etiology. I recommended that she follow with GI. The patient is well appearing, and tolerates PO. Patient stable for discharge. I reviewed the case with my attending Dr. Randolph who agrees with the assessment and plan.I have spoke with the patient regarding their condition and future management. They have verbally responded that they understand their status and treatment plan. The patients vitals are stable, and their current condition is appropriate for discharge. The patient will be given discharge instructions with return precautions. Departure Diagnosis: Primary Impression: Abdominal pain Qualified Code: R10.13 - Epigastric pain Condition: Stable Additional Instructions: Follow up with your PCP within the next 1-3 days for a more thorough evaluation and a possible referral to a specialist. Return the the emergency department immediately if symptoms worsen or change. If you have any questions regarding medications, ask your pharmacist or us before you leave. If any adverse reactions occur while taking your medications, discontinue the treatment and return to the emergency department immediately. Take your medications as directed, and complete the entire course of treatment. STACEY LEONARD PA-C Oct 27, 2016 20:52
--- NOTE | 2016-10-27 20:52 | RADRPT ---
PROCEDURE: US Abdomen. CLINICAL INDICATION: Abdominal Pain TECHNIQUE: Multiple real-time images were acquired of the patient's abdomen and retroperitoneum ut ilizing a high resolution transducer. COMPARISON: None FINDINGS: Visualized portions of the pancreatic head and proximal body are unremarkable. The liver is normal in size and contour without evidence of intrapelvic biliary dilatation. The gallbladder is surgically absent. The common bile duct measures 1.6 mm in maximal dimension. No free fluid is identified. The right kidney is unremarkable without evidence of hydronephrosis or mass. Right kidney measures 1 0.5 cm in length. An extrarenal pelvis is seen on the right which is a normal variant. IMPRESSION: Status post cholecystectomy. Otherwise, no significant abnormalities are identified. RPTAT:AAJJ Physician Jessica Date Time Electronically viewed and signed by Physician Jessica on 10/27/2016 20:52 JEREMI/
[2016-10-27] MEDS ORDERED: SOD CHLORIDE 0.9% 500 ML IV ONE (21:00)
[2016-10-27] MEDS ORDERED: KETO10TA PO (21:03)
[2016-10-27 21:20] VITALS: BP 128/81; PULSE 69; RESP 16; TEMP 98.3
== END 2016-10-27 21:20 | disposition home or self-care (01) ==
LOC: FTE 16:53
DX: R10.13 Epigastric pain (principal)
CPT/HCPCS: 36415; 76705; 80053; 81001; 83690; 85025; 96374; 96375; J1885; J2270; J2405; J7040; Z7502

== ENCOUNTER 2017-01-11 11:34 | Emergency (ER) | payer OTHER ==
[~2017-01-11] VITALS: Ht 172.7 cm; Wt 48.0 kg
[~2017-01-11 11:34] MED LIST changes: +KETO10TA PO
[2017-01-11 11:38] VITALS: Ht 172.7 cm; Wt 48.0 kg
[2017-01-11] MEDS ORDERED: SOD CHLORIDE 0.9% 1,000 ML IV STA (12:12)
[2017-01-11] MEDS ORDERED: METOCLOPRAMIDE 10 MG INJ IV ONE (12:30)
--- NOTE | 2017-01-11 12:33 | ERD ---
ER Documentation Chief Complaint Chief Complaint AP w/N/V SINCE AM , LMP 11/22/16 HPI 21-year-old female history of gastric ulcers, pancreatitis who is currently A1 is presenting with nausea vomiting starting this morning. She is a patient of Dr. Boateng. She had a normal ultrasound, and states that she is approximately 8 weeks for the last months of pain November 22, 2016. She reports nausea vomiting no abdominal pain, chest pain, shortness of breath. She denies fevers chills, pain, vaginal bleeding. ROS All systems reviewed and are negative except as per history of present illness. Medications Home Meds Active Scripts Metoclopramide* (Reglan*) 10 Mg Tablet, 10 MG PO Q6 Y for NAUSEA AND/OR VOMITING , #10 TAB Prov:CHARU CABRERA PA-C 01/11/17 Ketorolac Tromethamine* (Ketorolac Tromethamine*) 10 Mg Tablet, 10 MG PO Q6H Y for PAIN for 3 Days, TAB Prov:STACEY LEONARD PA-C 10/27/16 Hydrocodone/Acetaminophen ([place] 5-325 Tablet) 1 Each Tablet, 1 TAB PO Q6H Y for SEVERE PAIN LEVEL 7-10, #20 TAB Prov:RACHELE HUGHES NP 10/06/16 Ondansetron (Ondansetron Odt) 4 Mg Tab.rapdis, 4 MG PO Q8 Y for NAUSEA AND/OR VOMITING, #30 TAB Prov:RACHLEE HUGHES NP 10/06/16 Magaldrate/Simethicone* (Mylanta*) 355 Ml Susp, 30 ML PO QID Y for GASTROINTESTINAL UPSET, #1 BOTTLE Prov:RACHELE HUGHES CHEMICAL INSTRUMENTATION OFFICER 10/06/16 Docusate Sodium* (Colace*) 100 Mg Capsule, 100 MG PO BID, #30 CAP Prov:DAX DEMARCO 03/26/16 Reported Medications Ferrous Sulfate* (Ferrous Sulfate*) 325 Mg Tabec, 325 MG PO DAILY, TAB 03/25/16 Allergies Allergies: Coded Allergies: lansoprazole (Verified Allergy, Intermediate, BODY RASH , 03/25/16) PMhx/Soc History of Surgery: Yes (gallbladder removal ) Anesthesia Reaction: No Hx Neurological Disorder: No Hx Respiratory Disorders: No Hx Cardiac Disorders: No Hx Psychiatric Problems: No Hx Miscellaneous Medical Probl: Yes (ulcer) Hx Alcohol Use: No Hx Substance Use: No Hx Tobacco Use: No Physical Exam Vitals Vital Signs Date Time Temp Pulse Resp B/P Pulse Ox O2 Delivery O2 Flow Rate FiO2 01/11/17 11:38 98.3 119 18 110/68 99 Physical Exam General: Well-developed, well-nourished. The patient appears in no acute distress. HEENT: Head is normocephalic, atraumatic. No scleral icterus. Neck: Supple. Nontender. Lungs: Clear to auscultation. Normal air movement. Heart: Regular rate and rhythm. S1 and S2 are normal. No murmurs, gallops, or rubs. Abdomen: Soft, nontender, nondistended. Bowel sounds are normoactive. Extremities: No clubbing or cyanosis. Normal pulses. Moving extremities x 4. No weakness. Neurologic: Alert and oriented 3. No focal deficits. Skin: Normal turgor. No rash or lesions. Result Diagram: 01/11/17 1214 01/11/17 1214 Results 24 hrs Laboratory Tests Test 01/11/17 12:14 01/11/17 12:35 White Blood Count 10.110^3/ul Red Blood Count 4.6310^6/ul Hemoglobin 12.9g/dl Hematocrit 39.0% Mean Corpuscular Volume 84.2fl Mean Corpuscular Hemoglobin 27.9pg Mean Corpuscular Hemoglobin Concent 33.1g/dl Red Cell Distribution Width 13.5% Platelet Count 56212^3/UL Mean Platelet Volume 8.3fl Neutrophils % 92.1% Lymphocytes % 3.2% Monocytes % 3.9% Eosinophils % 0.4% Basophils % 0.2% Nucleated Red Blood Cells % 0.0/100WBC Neutrophils # 9.310^3/ul Lymphocytes # 0.310^3/ul Monocytes # 0.410^3/ul Eosinophils # 0.010^3/ul Basophils # 0.010^3/ul Nucleated Red Blood Cells # 0.010^3/ul Sodium Level 137mmol/L Potassium Level 3.8mmol/L Chloride Level 99mmol/L Carbon Dioxide Level 25mmol/L Anion Gap 17 Blood Urea Nitrogen 11mg/dl Creatinine 0.59mg/dl Glucose Level 121mg/dl Calcium Level 8.8mg/dl Total Bilirubin 0.3mg/dl Direct Bilirubin 0.00mg/dl Indirect Bilirubin 0.3mg/dl Aspartate Amino Transf (AST/SGOT) 40IU/L Alanine Aminotransferase (ALT/SGPT) 47IU/L Alkaline Phosphatase 46IU/L Total Protein 7.5g/dl Albumin 4.3g/dl Globulin 3.20g/dl Albumin/Globulin Ratio 1.34 Lipase 75U/L Urine Color YELLOW Urine Clarity SLIGHTLY CLOUDY Urine pH 5.0 Urine Specific [place] 1.024 Urine Ketones NEGATIVEmg/dL Urine Nitrite NEGATIVEmg/dL Urine Bilirubin NEGATIVEmg/dL Urine Urobilinogen NEGATIVEmg/dL Urine Leukocyte Esterase NEGATIVELeu/ul Urine Microscopic RBC 1/HPF Urine Microscopic WBC 1/HPF Urine Squamous Epithelial Cells FEW/HPF Urine Bacteria FEW/HPF Urine Mucus FEW/HPF Urine Hemoglobin NEGATIVEmg/dL Urine Glucose NEGATIVEmg/dL Urine Total Protein NEGATIVEmg/dl Current Medications Medications (Trade) Dose Ordered Sig/Chrissy Route PRN Reason Start Time Stop Time Status Last Admin Dose Admin Sodium Chloride (NS) 1,000 ml @ 1,000 mls/hr Q1H STAT IV 01/11/17 12:12 01/11/17 13:11 DC 01/11/17 12:55 Metoclopramide HCl (Reglan) 10 mg ONCE ONCE IV 01/11/17 12:30 01/11/17 12:31 DC 01/11/17 12:56 DIAGNOSTIC IMAGING REPORT Patient: AKI JACOB : 1995 Age: 21 Sex: F MR #: [id number] DOS: 01/11/17 1212 Ordering MD: CHARU CABRERA PA-C Location: [facility] Room/Bed: PROCEDURE: US OB. CLINICAL INDICATION: Nausea and vomiting TECHNIQUE: Transabdominal views of the pelvis are available for review. COMPARISON: No prior studies are available for comparison. FINDINGS: There is a single intrauterine gestation with the crown-rump length measuring 1.5 cm, corresponding to a gestational age of 7 weeks and 6 days. The heart rate is noted at 161 bpm. The ovaries are normal in size and echogenicity. Normal Doppler flow is identified in both ovaries. The right ovary measures 3.3 x 1.6 x 2.3 cm. The left ovary measures 2.9 x 1.5 x 1.4 cm. There is no free fluid. RPTAT: AA IMPRESSION: Single live intrauterine with an estimated gestational age of 7 weeks and 6 days, based on ultrasound measurements. SHILPA based on ultrasound measurements is 08/24/17. .Nam Hughes MD, MD Date Time Electronically viewed and signed by .Nam Hughes MD, on 01/11/2017 13: 42 .S/ CC: CHARU CABRERA PA-C Procedures/[facility] ER course: The patient had IV access obtained, blood and urine were obtained. She was medicated with Reglan 10 mg and a fluid bolus of normal saline 1 L. Medical decision makin-year-old female with a history of ulcers, pancreatitis currently is presenting with hyperemesis. Patient has a single live intrauterine , normal electrolytes, no evidence of pancreatitis. Patient presents with hyperemesis gravidarum that was treated with Reglan intravenously fluids and she states she is feeling much better at this time. Patient was given a prescription of Reglan to continue at home. Departure Diagnosis: Primary Impression: Hyperemesis gravidarum Additional Impression: First trimester Condition: Good CHARU CABRERA PA-C Jan 11, 2017 12:33
[2017-01-11 12:57] LABS: ABNORMAL IP MESSAGE 1; BASOPHILS % 0.2 % (0.0-2.0); EOSINOPHILS % 0.4 % (0.0-7.0); HEMOGLOBIN 12.9 g/dl (12.0-16.0); LYMPHOCYTES # 0.3 10^3/ul (0.8-2.9); LYMPHOCYTES % 3.2 % (15.0-51.0); MEAN CORPUSCULAR HEMOGLOBIN 27.9 pg (29.0-33.0); MEAN CORPUSCULAR HGB CONC 33.1 g/dl (32.0-37.0); MEAN CORPUSCULAR VOLUME 84.2 fl (82.0-101.0); MEAN PLATELET VOLUME 8.3 fl (7.4-10.4); MONOCYTE # 0.4 10^3/ul (0.3-0.9); MONOCYTES % 3.9 % (0.0-11.0); NEUTROPHIL # 9.3 10^3/ul (1.6-7.5); NEUTROPHILS % 92.1 % (39.0-77.0); PLATELET COUNT 257 10^3/UL (140-415); RED BLOOD COUNT 4.63 10^6/ul (4.20-5.40); RED CELL DISTRIBUTION WIDTH 13.5 % (11.5-14.5); WHITE BLOOD COUNT 10.1 10^3/ul (4.8-10.8)
[2017-01-11 13:06] LABS: ADD UMIC NO; UR ASCORBIC ACID 40 mg/dL (NEGATIVE); UR BACTERIA FEW /HPF (NONE SEEN); UR BILIRUBIN (Dip) NEGATIVE (NEGATIVE); UR BLOOD (Dip) NEGATIVE (NEGATIVE); UR CLARITY SLIGHTLY CLOUDY (CLEAR); UR COLOR YELLOW (YELLOW); UR GLUCOSE (Dip) NEGATIVE (NEGATIVE); UR KETONES (Dip) NEGATIVE (NEGATIVE); UR LEUKOCYTE ESTERASE (Dip) NEGATIVE Leu/ul (NEGATIVE); UR MUCUS FEW /HPF (NONE SEEN); UR NITRITE (Dip) NEGATIVE (NEGATIVE); UR RBC 1 /HPF (0-5); UR SPECIFIC GRAVITY (Dip) 1.024 (1.003-1.030); UR SQUAMOUS EPITHELIAL CELL FEW /HPF (FEW); UR TOTAL PROTEIN (Dip) NEGATIVE (NEGATIVE); UR UROBILINOGEN (Dip) NEGATIVE (NEGATIVE)
[2017-01-11 13:16] LABS: POSITIVE DIFF @See below
[2017-01-11 13:32] LABS: ALBUMIN 4.3 g/dl (3.3-4.9); ALBUMIN/GLOBULIN RATIO 1.34; BILIRUBIN,INDIRECT 0.3 mg/dl (0-1.1); BILIRUBIN,TOTAL 0.3 mg/dl (0.2-1.3); CALCIUM 8.8 mg/dl (8.4-10.2); CREATININE 0.59 mg/dl (0.44-1.00); POTASSIUM 3.8 mmol/L (3.5-5.1); TOTAL PROTEIN 7.5 g/dl (6.1-8.1)
--- NOTE | 2017-01-11 13:43 | RADRPT ---
PROCEDURE: US OB. CLINICAL INDICATION: Nausea and vomiting TECHNIQUE: Transabdominal views of the pelvis are available for review. COMPARISON: No prior studies are available for comparison. FINDINGS: There is a single intrauterine gestation with the crown-rump length measuring 1.5 cm, corresponding to a gestational age of 7 weeks and 6 days. The heart rate is noted at 161 bpm. The ovaries are normal in size and echogenicity. Normal Doppler flow is identified in both ovaries. The right ovary measures 3.3 x 1.6 x 2.3 cm. The left ovary measures 2.9 x 1.5 x 1.4 cm. There is no free fluid. RPTAT: AA IMPRESSION: Single live intrauterine with an estimated gestational age of 7 weeks and 6 days, based on ultrasound measurements. SHILPA based on ultrasound measurements is 08/24/17. .Nam Hughes MD, MD Date Time Electronically viewed and signed by .Nam Hughes MD, on 01/11/2017 13:42 .S/
[2017-01-11] MEDS ORDERED: METO10TA92 PO (13:58)
[2017-01-11 14:31] VITALS: BP 97/62; PULSE 97; RESP 16
== END 2017-01-11 14:32 | disposition home or self-care (01) ==
LOC: FTE 11:34
DX: O21.0 Mild hyperemesis gravidarum (principal); R10.2 Pelvic and perineal pain; Z3A.01 Less than 8 weeks gestation of pregnancy
CPT/HCPCS: 36415; 76801; 80053; 81001; 83690; 84702; 85025; 86900; 86901; 96374; J2765; J7030; Z7502; 81003

== ENCOUNTER 2017-02-27 21:52 | Emergency (ER) | END 2017-02-28 02:34 | disposition home or self-care (01) ==

== ENCOUNTER 2017-07-07 22:56 | Outpatient (CLI) | END 2017-07-08 02:05 | disposition home or self-care (01) ==

== ENCOUNTER 2017-07-09 19:22 | Inpatient (IN) | END 2017-07-10 13:34 | disposition left against medical advice (07) | DRG 782 ==

== ENCOUNTER 2017-07-10 21:27 | Outpatient (CLI) | END 2017-07-10 22:35 | disposition home or self-care (01) ==

== ENCOUNTER 2017-08-10 17:30 | Inpatient (IN) | END 2017-08-12 11:35 | disposition home or self-care (01) | DRG 775 ==

== ENCOUNTER 2018-02-27 18:29 | Emergency (ER) | payer OTHER ==
[~2018-02-27] VITALS: Ht 162.6 cm; Wt 46.1 kg
[~2018-02-27 18:29] MED LIST changes: -DOCU-144 PO; -FER325 PO; +FOLI0.4T2 PO; -HYDR-906 PO; -KETO10TA PO; -MAG-19 PO; -ONDA4TAB14 PO; +PREN1TAB13 PO
[2018-02-27 18:46] VITALS: Ht 162.6 cm; Wt 46.1 kg
--- NOTE | 2018-02-27 20:50 | ERD ---
ER Documentation Chief Complaint Chief Complaint BILE DUCT BLOCKAGE; SEEN IN [facility] YESTERDAY; N/V HPI This is a 23-year-old female presents for evaluation of right upper quadrant pain intermittent for the last day. She was seen at [facility] where she had an ultrasound that showed mild biliary duct dilation, and transaminitis, at that time they recommended admission for an MRCP, she stated that she wanted to go to be evaluated at the hospital here at [facility] [place], and she left AGAINST MEDICAL ADVICE. She had a vasectomy about a year and a half ago, she denies fever, denies recent travel, denies recent acetaminophen ingestion, she is sexually active with one partner, she has no history of hepatitis. She denies any drug use. She occasionally drinks alcohol. Currently her pain is minimal. ROS All systems reviewed and are negative except as per history of present illness. Medications Home Meds Active Scripts Pnv95/Ferrous Fumarate/FA ( Vitamins Tablet) 1 Each Tablet, 1 EACH PO DAILY, #30 TAB Prov:OSCAR JACKSON PA-C 02/28/17 Reported Medications Folic Acid* (Folic Acid*) 0.4 Mg Tablet, 0.4 MG PO DAILY, TAB 07/07/17 Allergies Allergies: Coded Allergies: lansoprazole (Verified Allergy, Intermediate, BODY RASH , 07/09/17) PMhx/Soc History of Surgery: Yes (gallbladder removal ) Anesthesia Reaction: No Hx Neurological Disorder: No Hx Respiratory Disorders: No Hx Cardiac Disorders: No Hx Psychiatric Problems: No Hx Miscellaneous Medical Probl: Yes (ulcer) Hx Alcohol Use: No Hx Substance Use: No Hx Tobacco Use: No Physical Exam Vitals Vital Signs Date Temp Pulse Resp B/P (MAP) Pulse Ox O2 O2 Flow FiO2 Time Delivery Rate 02/27/18 84 18 111/73 100 Room Air 23:20 (86) 02/27/18 81 15 118/87 98 Room Air 21:16 (97) 02/27/18 98.5 117 19 129/89 100 18:46 (102) Physical Exam Const: No acute distress Head: Atraumatic Eyes: Normal Conjunctiva ENT: Normal External Ears, Nose and Mouth. Neck: Full range of motion. No meningismus. Resp: Clear to auscultation bilaterally Cardio: Regular rate and rhythm, no murmurs Abd: Soft, non tender, non distended. Normal bowel sounds, no rebound or guarding, negative Abreu sign Skin: No petechiae or rashes Back: No midline or flank tenderness Ext: No cyanosis, or edema Neur: Awake and alert Psych: Normal Mood and Affect Result Diagram: 02/27/18210902/27/182109 Results 24 hrs Laboratory Tests Test 02/27/18 20:58 02/27/18 21:00 02/27/18 21:10 Urine Color YELLOW Urine Clarity CLOUDY Urine pH 6.0 Urine Specific [place] 1.024 Urine Ketones NEGATIVE mg/dL Urine Nitrite NEGATIVE mg/dL Urine Bilirubin NEGATIVE mg/dL Urine Urobilinogen NEGATIVE mg/dL Urine Leukocyte Esterase NEGATIVE Nidia/ul Urine Microscopic RBC 2 /HPF Urine Microscopic WBC 5 /HPF Urine Squamous Epithelial Cells FEW /HPF Urine Amorphous Crystals FEW /HPF Urine Bacteria FEW /HPF Urine Hemoglobin NEGATIVE mg/dL Urine Glucose NEGATIVE mg/dL Urine Total Protein NEGATIVE mg/dl POC Beta HCG, Qualitative NEGATIVE White Blood Count 5.4 10^3/ul Red Blood Count 4.33 10^6/ul Hemoglobin 12.3 g/dl Hematocrit 36.9 % Mean Corpuscular Volume 85.2 fl Mean Corpuscular Hemoglobin 28.4 pg Mean Corpuscular 33.3 g/dl Hemoglobin Concent Red Cell Distribution Width 11.9 % Platelet Count 293 10^3/UL Mean Platelet Volume 8.7 fl Immature Granulocytes % 0.200 % Neutrophils % 48.3 % Lymphocytes % 32.3 % Monocytes % 9.9 % Eosinophils % 8.6 % Basophils % 0.7 % Nucleated Red Blood Cells % 0.0 /100WBC Immature Granulocytes # 0.010 10^3/ul Neutrophils # 2.6 10^3/ul Lymphocytes # 1.7 10^3/ul Monocytes # 0.5 10^3/ul Eosinophils # 0.5 10^3/ul Basophils # 0.0 10^3/ul Nucleated Red Blood Cells # 0.0 10^3/ul Prothrombin Time 12.6 Sec Prothrombin Time Ratio 1.0 INR International 0.93 Normalized Ratio Sodium Level 141 mmol/L Potassium Level 4.3 mmol/L Chloride Level 100 mmol/L Carbon Dioxide Level 30 mmol/L Anion Gap 11 Blood Urea Nitrogen 10 mg/dl Creatinine 0.66 mg/dl Est Glomerular Filtrat > 60 mL/min Rate mL/min Glucose Level 98 mg/dl Calcium Level 9.1 mg/dl Total Bilirubin 0.0 mg/dl Direct Bilirubin 0.00 mg/dl Indirect Bilirubin 0.0 mg/dl Aspartate Amino Transf (AST/SGOT) 360 IU/L Alanine 366 IU/L Aminotransferase (ALT/SGPT) Alkaline Phosphatase 75 IU/L Total Protein 7.5 g/dl Albumin 4.3 g/dl Globulin 3.20 g/dl Albumin/Globulin Ratio 1.34 Lipase 105 U/L Procedures/MDM This is a very pleasant 23-year-old female presents for evaluation of abdominal pain. On my evaluation she was pain-free, her labs did show transaminitis, serrano hugo her ultrasound showed no evidence of any common bile duct dilation, she had no leukocytosis, she is afebrile and nontoxic and essentially asymptomatic at that point. The possibility of a retained stone was discussed with the patient, I did offer her admission, however as she has no other symptoms, she is otherwise well-appearing and nontoxic, the patient felt comfortable with following up with her primary care doctor for transaminitis as an outpatient. I feel that this is a reasonable option, advised her to contact her primary care doctor tomorrow, if she is unable to obtain follow-up, I did advise her to return to the ED, at which time we could evaluate her for further workup. I advised her to return immediately should she have any abdominal pain, any fever, diarrhea, or any concerning symptoms at all. This was discussed with both the patient and her mother, who are both agreeable to this plan, at discharge the patient was in no acute distress. Departure Diagnosis: Primary Impression: Transaminitis Condition: Stable SATYA MO MD Feb 27, 2018 20:50
[2018-02-27 23:20] VITALS: BP 111/73; PULSE 84; RESP 18
== END 2018-02-27 23:23 | disposition home or self-care (01) ==
LOC: E/R 18:29
DX: R74.0 Nonspecific elevation of levels of transaminase and lactic acid dehydrogenase [LDH] (principal); R10.11 Right upper quadrant pain
CPT/HCPCS: 76705; 80053; 81001; 81025; 83690; 85025; 85610; Z7502; Z7610

== ENCOUNTER 2018-04-25 18:02 | Emergency (ER) | payer OTHER ==
[~2018-04-25] VITALS: Wt 46.2 kg
[~2018-04-25 18:02] MED LIST changes: +FER325 PO; -FOLI0.4T2 PO; -PREN1TAB13 PO
[2018-04-25] MEDS ORDERED: SOD CHLORIDE 0.9% 1,000 ML IV STA (20:58)
--- NOTE | 2018-04-25 22:29 | ERD ---
ER Documentation Chief Complaint Chief Complaint bib self, cc: weakness, palpitations, sob upon exacerbation HPI 23-year-old female history of prior pancreatitis, chronic Lyme disease who presents to the emergency room with generalized weakness and palpitations. The patient states that over the last several days she has felt weak and tired. She feels that her heart is racing. She took her blood pressure at home and it was low. She denies any vaginal bleeding. No nausea vomiting or diarrhea. She denies any fevers or chills. She denies any abdominal pain that would be consistent with her pancreatitis. ROS All systems reviewed and are negative except as per history of present illness. Medications Home Meds Reported Medications Ferrous Sulfate* (Ferrous Sulfate*) 325 Mg Tabec, 325 MG PO TID, TAB 03/31/18 Allergies Allergies: Coded Allergies: [email or web address] (Verified Allergy, Intermediate, BODY RASH , 03/31/18) PMhx/Soc History of Surgery: Yes (destiny, ovarian tumor) Anesthesia Reaction: No Hx Neurological Disorder: No Hx Respiratory Disorders: No Hx Cardiac Disorders: No Hx Psychiatric Problems: No Hx Miscellaneous Medical Probl: No (pancreatitis, high liver emzynes) Hx Alcohol Use: No Hx Substance Use: No Hx Tobacco Use: No Smoking Status: Never smoker FmHx Family History: No diabetes Physical Exam Vitals Vital Signs Date Temp Pulse Resp B/P (MAP) Pulse Ox O2 O2 Flow FiO2 Time Delivery Rate 04/25/18 98.3 90 14 129/83 100 Room Air 21:55 (98) 04/25/18 98.7 131 19 163/105 100 18:47 (124) Physical Exam General: Well developed, well nourished, no acute distress Head: Normocephalic, atraumatic. Eyes: Pupils equally reactive, EOM intact ENT: Moist mucous membranes Neck: Supple, no lymphadenopathy Respiratory: Lungs clear bilaterally, no distress Cardiovascular: RRR, no murmurs, rubs, or gallops Abdominal: Soft, non-tender, non-distended, no peritoneal signs : Deferred MSK: No edema, no unilateral swelling, 5/5 strength Neurologic: Alert and oriented, moving all extremities, normal speech, no focal weakness, no cerebellar signs Skin: No rash Psych: Normal mood Result Diagram: 3/4/19 2115 3/4/19 2115 Results 24 hrs Laboratory Tests Test 04/25/18 21:15 White Blood Count 6.8 10^3/ul Red Blood Count 4.37 10^6/ul Hemoglobin 11.9 g/dl Hematocrit 36.3 % Mean Corpuscular Volume 83.1 fl Mean Corpuscular Hemoglobin 27.2 pg Mean Corpuscular Hemoglobin Concent 32.8 g/dl Red Cell Distribution Width 13.0 % Platelet Count 248 10^3/UL Mean Platelet Volume 9.3 fl Immature Granulocytes % 0.100 % Neutrophils % 44.7 % Lymphocytes % 39.6 % Monocytes % 9.6 % Eosinophils % 5.4 % Basophils % 0.6 % Nucleated Red Blood Cells % 0.0 /100WBC Immature Granulocytes # 0.010 10^3/ul Neutrophils # 3.0 10^3/ul Lymphocytes # 2.7 10^3/ul Monocytes # 0.7 10^3/ul Eosinophils # 0.4 10^3/ul Basophils # 0.0 10^3/ul Nucleated Red Blood Cells # 0.0 10^3/ul Sodium Level 141 mmol/L Potassium Level 4.2 mmol/L Chloride Level 104 mmol/L Carbon Dioxide Level 29 mmol/L Anion Gap 8 Blood Urea Nitrogen 13 mg/dl Creatinine 0.74 mg/dl Est Glomerular Filtrat Rate mL/min > 60 mL/min Glucose Level 85 mg/dl Calcium Level 9.5 mg/dl Total Bilirubin 0.0 mg/dl Direct Bilirubin 0.00 mg/dl Indirect Bilirubin 0.0 mg/dl Aspartate Amino Transf (AST/SGOT) 28 IU/L Alanine Aminotransferase (ALT/SGPT) 29 IU/L Alkaline Phosphatase 44 IU/L Total Protein 7.6 g/dl Albumin 4.3 g/dl Globulin 3.30 g/dl Albumin/Globulin Ratio 1.30 Lipase 136 U/L Current Medications Medications Dose Sig/Chrissy Start Time Status Last (Trade) Ordered Route PRN Stop Time Admin Dose Reason Admin Sodium 1,000 ml @ Q1H STAT 04/25/18 DC Chloride 1,000 mls/hr IV 20:58 04/25/18 21:57 Procedures/MDM EKG, MONITORS, & DIAGNOSTIC IMAGING: EKG: I reviewed and interpreted a 12-lead EKG. Rhythm: Normal sinus rhythm ST Changes: No contiguous ST segment elevations T waves: No contiguous T wave inversions Impression: No evidence of acute cardiac ischemia LAB INTERPRETATION: I reviewed the laboratory testing and it shows no evidence of acute process MEDICAL DECISION MAKING: Patient presents with palpitations, consider possible dehydration. Lower concern for anemia that the patient does describe a history of anemia. Lower concern for hepatobiliary process or pancreatitis Patient's blood pressure is normal here unclear why the patient had low blood pressure at home though the patient does only weight 46 kg below her blood pressures are likely acceptable in this patient. ER COURSE: * The patient was given IV fluids. Her laboratory testing is otherwise unrevealing. EKG shows no evidence of cardiac arrhythmia. At this point I believe mild dehydration is the likely etiology. The patient has a number of chronic issues that need to be followed up with primary care physician. * Patient can be safely discharged CONSULTATION: None DISPOSITION PLAN: The patient does not have an identifiable emergent medical condition that warrants inpatient hospitalization at this time. The patient is deemed safe for discharge with outpatient follow-up. We discussed follow up with the patient's primary care doctor within 24 to 48 hours as needed. We also discussed return to the emergency room for worsening symptoms or worsening condition. Outpatient referral: None required Departure Diagnosis: Primary Impression: Dehydration Additional Impression: Palpitations Condition: Stable Patient Instructions: Palpitations Additional Instructions: Call your primary care doctor TOMORROW for an appointment during the next 1 WEEK.Tell the admin secretary that you were referred from this facility.See the doctor sooner or return here if your condition worsens before your appointment time. FARHAN GARCIA MD Apr 25, 2018 22:29
[2018-04-25 22:43] VITALS: BP 118/79; PULSE 87; RESP 19
== END 2018-04-25 22:45 | disposition home or self-care (01) ==
LOC: E/R 18:02
DX: R00.2 Palpitations (principal); E86.0 Dehydration
CPT/HCPCS: 36415; 80053; 81025; 83690; 85025; 93005; J7030; Z7502

== ENCOUNTER 2018-04-28 23:36 | Emergency (ER) | payer OTHER ==
[~2018-04-28] VITALS: Wt 46.5 kg
--- NOTE | 2018-04-29 01:57 | ERD ---
ER Documentation Chief Complaint Chief Complaint AP HPI The patient is a 23-year-old female, presenting with recurrent right-sided ab dominal pain for 1 day, has history of chronic abdominal pain of unclear etiology, no aggravating/relieving factor, denies fever, chills, neck pain, chest pain, dyspnea, vomiting, dysuria, diarrhea. She does not smoke nor drink nor does illicit drug Past medical history: Anemia, chronic abdominal pain, peptic ulcer disease Past surgical history: Cholecystectomy, right ovarian tumor ROS All systems reviewed and are negative except as per history of present illness. Medications Home Meds Reported Medications Ferrous Sulfate* (Ferrous Sulfate*) 325 Mg Tabec, 325 MG PO TID, TAB 03/31/18 Allergies Allergies: Coded Allergies: [email or web address] (Verified Allergy, Intermediate, BODY RASH , 03/31/18) PMhx/Soc History of Surgery: Yes (destiny, ovarian tumor) Anesthesia Reaction: No Hx Neurological Disorder: No Hx Respiratory Disorders: No Hx Cardiac Disorders: No Hx Psychiatric Problems: No Hx Miscellaneous Medical Probl: No (pancreatitis, high liver emzynes) Hx Alcohol Use: No Hx Substance Use: No Hx Tobacco Use: No Physical Exam Vitals Vital Signs Date Temp Pulse Resp B/P (MAP) Pulse Ox O2 O2 Flow FiO2 Time Delivery Rate 04/29/18 84 16 119/84 100 Room Air 02:37 (96) 04/28/18 98.7 104 18 148/89 100 23:39 (108) Physical Exam Const: No acute distress. Head: Atraumatic. Eyes: Normal Conjunctiva. ENT: Normal External Ears, Nose and Mouth. Neck: Full range of motion. No meningismus. Resp: Clear to auscultation bilaterally. Cardio: Regular rate and rhythm. Abd: Soft, non distended, normal bowel sounds, mild and vague right sided abdominal discomfort, no rigidity/right upper quadrant/right lower quadrant/CVA tenderness Skin: No petechiae or rashes. Back: No midline or flank tenderness. Ext: No cyanosis, or edema. Neur: Awake and alert. No focal deficit Psych: Normal Mood and Affect. Result Diagram: 04/29/1820604/29/18 020 Results 24 hrs Laboratory Tests Test 04/29/18 02:07 04/29/18 02:14 04/29/18 02:17 White Blood Count 6.8 10^3/ul Red Blood Count 4.31 10^6/ul Hemoglobin 11.6 g/dl Hematocrit 35.4 % Mean Corpuscular Volume 82.1 fl Mean Corpuscular Hemoglobin 26.9 pg Mean Corpuscular Hemoglobin Concent 32.8 g/dl Red Cell Distribution Width 13.2 % Platelet Count 265 10^3/UL Mean Platelet Volume 9.0 fl Immature Granulocytes % 0.300 % Neutrophils % 45.0 % Lymphocytes % 38.2 % Monocytes % 9.0 % Eosinophils % 6.8 % Basophils % 0.7 % Nucleated Red Blood Cells % 0.0 /100WBC Immature Granulocytes # 0.020 10^3/ul Neutrophils # 3.0 10^3/ul Lymphocytes # 2.6 10^3/ul Monocytes # 0.6 10^3/ul Eosinophils # 0.5 10^3/ul Basophils # 0.1 10^3/ul Nucleated Red Blood Cells # 0.0 10^3/ul Sodium Level 140 mmol/L Potassium Level 3.7 mmol/L Chloride Level 100 mmol/L Carbon Dioxide Level 27 mmol/L Anion Gap 13 Blood Urea Nitrogen 12 mg/dl Creatinine 0.74 mg/dl Est Glomerular Filtrat Rate mL/min > 60 mL/min Glucose Level 92 mg/dl Calcium Level 9.5 mg/dl Total Bilirubin 0.3 mg/dl Direct Bilirubin 0.00 mg/dl Indirect Bilirubin 0.3 mg/dl Aspartate Amino Transf (AST/SGOT) 36 IU/L Alanine Aminotransferase (ALT/SGPT) 27 IU/L Alkaline Phosphatase 45 IU/L Total Protein 8.2 g/dl Albumin 4.7 g/dl Globulin 3.50 g/dl Albumin/Globulin Ratio 1.34 Lipase 126 U/L Bedside Urine pH (LAB) 7.0 Bedside Urine Protein (LAB) Negative Bedside Urine Glucose (UA) Negative Bedside Urine Ketones (LAB) Negative Bedside Urine Blood Negative Bedside Urine Nitrite (LAB) Negative Bedside Urine Leukocyte Esterase (L Negative POC Beta HCG, Qualitative NEGATIVE Current Medications Medications Dose Sig/Chrissy Start Time Status Last (Trade) Ordered Route PRN Stop Time Admin Dose Reason Admin Sodium 1,000 ml @ Q1H STAT 04/29/18 DC 04/29/18 Chloride 1,000 mls/hr IV 02:05 04/29/18 02:16 03:04 Morphine 2 mg ONCE STAT 04/29/18 DC 04/29/18 Sulfate IV 02:05 04/29/18 02:16 (morphine) 02:06 Ondansetron 4 mg ONCE STAT 04/29/18 DC 04/29/18 HCl (Zofran IV 02:05 04/29/18 02:15 Inj) 02:06 25 mg ONCE ONCE 04/29/18 DC 04/29/18 Diphenhydrami IV 02:30 04/29/18 02:37 ne HCl 02:31 (Benadryl) Procedures/MDM MEDICAL MAKING DECISION: The patient is a 23-year-old female, presenting with acute on chronic abdominal pain of unclear etiology, was treated with 1 L normal saline for clinical dehydration, morphine 2 mg IV for, Zofran 4 mg IV for nausea with good response, is stable for outpatient follow-up The differential diagnoses considered include but are not limited to cholelithiasis, cholecystitis, choledocholithiasis, cholangitis, pancreatitis, hepatitis, gastritis, peptic ulcer disease, gastric ulcer, appendicitis, cystitis, diverticulitis, partial small bowel obstruction. Departure Diagnosis: Primary Impression: Abdominal pain Additional Impression: Anemia Condition: Stable Comments I discussed the findings with the patient. I advised the patient to follow-up with the primary physician in about 2-3 days, sooner if needed and return if any concern. The patient's blood pressure was elevated (>120/80) but appears stable without evidence of hypertension emergency or urgency. The patient was counseled about the risks of hypertension and urged to pursue outpatient monitoring and therapy within a week with their primary care physician. Disclaimer: Inadvertent spelling and grammatical errors are likely due to EHR/dictation software use and do not reflect on the overall quality of patient care. Also, please note that the electronic time recorded on this note does not necessarily reflect the actual time of the patient encounter. STACEY MOSS MD Apr 29, 2018 01:57
[2018-04-29] MEDS ORDERED: SOD CHLORIDE 0.9% 1,000 ML IV STA (02:05)
[2018-04-29] MEDS ORDERED: morphine 2 MG INJ IV STA (02:05)
[2018-04-29] MEDS ORDERED: ONDANSETRON 4 MG INJ IV STA (02:05)
[2018-04-29] MEDS ORDERED: DIPHENHYDRAMINE 50 MG INJ IV ONE (02:30)
[2018-04-29 04:20] VITALS: BP 110/78; PULSE 83; RESP 16
== END 2018-04-29 04:21 | disposition home or self-care (01) ==
LOC: E/R 23:36
DX: R10.9 Unspecified abdominal pain (principal); D64.9 Anemia, unspecified
CPT/HCPCS: 36415; 80053; 81003; 81025; 83690; 85025; 96374; 96375; J1200; J2270; J2405; J7030; Z7502

== ENCOUNTER 2018-06-08 23:01 | Emergency (ER) | payer OTHER ==
[~2018-06-08] VITALS: Ht 162.6 cm; Wt 47.1 kg
[2018-06-08 23:05] VITALS: Ht 162.6 cm; Wt 47.1 kg
--- NOTE | 2018-06-09 00:31 | ERD ---
ER Documentation Chief Complaint Chief Complaint RUQ abd pain yesterday. +n/v hx of elevated liver enzymes 1 mo ago. HPI This is a 23-year-old female who presents emergency department with complaints of right lower abdominal pain that started today. Patient stated that this started in her periumbilical area that radiates down to her right lower quadrant. Stated that she has history of elevated liver enzymes. LMP: 2 weeks ago. . Denies headache, head injury, loss of consciousness, dizziness, neck pain, neck stiffness, throat pain, difficulty swallowing, difficulty breathing lying flat, shoulder pain, chest pain, back pain, constipation, diarrhea, urinary symptoms, or possibility being , loss of bowel and bladder control, trauma, injury, falls, difficulty walking due to pain, numbness or tingling sensation, calf pain, recent travel, recent major surgery in the last 3 weeks, calf pain, recent long travel, recent exposure to any illness, recent antibiotic use in the last 3 months, fever, chills, seizures. Past medical history: Gallstones. Surgical history: Cholecystectomy. Social: Denies smoking, use of alcoholic beverages, use of illegal drugs. ROS All systems reviewed and are negative except as per history of present illness. Medications Home Meds Active Scripts Docusate Sodium* (Colace*) 100 Mg Capsule, 100 MG PO DAILY PRN for CONSTIPATION, #30 CAP Prov:PASILACLEVE ORTIZAR F 06/09/18 Famotidine* (Pepcid*) 20 Mg Tablet, 40 MG PO DAILY for 30 Days, TAB Prov:PASILABAN,CLEVEAR F 06/09/18 Ondansetron Hcl* (Zofran*) 4 Mg Tablet, 4 MG PO Q6H PRN for NAUSEA, #30 TAB Prov:PASILABANCLEVEAR F 06/09/18 Acetaminophen* (Tylophen*) 500 Mg Capsule, 1 CAP PO Q6H PRN for PAIN AND OR ELEVATED TEMP, #20 CAP Prov:PASILABANKLAR F 06/09/18 Reported Medications Ferrous Sulfate* (Ferrous Sulfate*) 325 Mg Tabec, 325 MG PO TID, TAB 03/31/18 Allergies Allergies: Coded Allergies: [email or web address] (Verified Allergy, Intermediate, BODY RASH , 06/08/18) PMhx/Soc History of Surgery: Yes (destiny, ovarian tumor) Anesthesia Reaction: No Hx Neurological Disorder: No Hx Respiratory Disorders: No Hx Cardiac Disorders: No Hx Psychiatric Problems: No Hx Miscellaneous Medical Probl: No (pancreatitis, high liver emzynes) Hx Alcohol Use: No Hx Substance Use: No Hx Tobacco Use: No Physical Exam Vitals Vital Signs Date Temp Pulse Resp B/P (MAP) Pulse Ox O2 O2 Flow FiO2 Time Delivery Rate 06/09/18 98.0 78 17 110/70 98 Room Air 02:57 (83) 06/08/18 98.9 104 20 135/80 100 23:05 (98) Physical Exam Const: No acute distress Head: Atraumatic Eyes: Normal Conjunctiva ENT: Normal External Ears, Nose and Mouth. Neck: Full range of motion. No meningismus. Resp: Clear to auscultation bilaterally Cardio: Regular rate and rhythm, no murmurs Abd: Soft, non tender, non distended. Normal bowel sounds. Has right upper abdominal tenderness to palpation. Positive and psoas sign. Examined with female fermentation manager. Skin: No petechiae or rashes. Color appears normal for ethnicity. No skin tenting. No signs of severe dehydration. Back: No midline or flank tenderness. No CVA tenderness. Ext: No cyanosis, or edema Neur: Awake and alert. No neurological deficits. Psych: Normal Mood and Affect Result Diagram: 06/09/188 06/09/188 Results 24 hrs Laboratory Tests Test 06/09/18 00:38 06/09/18 00:45 White Blood Count 6.2 10^3/ul Red Blood Count 4.21 10^6/ul Hemoglobin 11.1 g/dl Hematocrit 34.5 % Mean Corpuscular Volume 81.9 fl Mean Corpuscular Hemoglobin 26.4 pg Mean Corpuscular Hemoglobin Concent 32.2 g/dl Red Cell Distribution Width 14.2 % Platelet Count 283 10^3/UL Mean Platelet Volume 8.7 fl Immature Granulocytes % 0.200 % Neutrophils % 37.2 % Lymphocytes % 46.4 % Monocytes % 9.9 % Eosinophils % 5.7 % Basophils % 0.6 % Nucleated Red Blood Cells % 0.0 /100WBC Immature Granulocytes # 0.010 10^3/ul Neutrophils # 2.3 10^3/ul Lymphocytes # 2.9 10^3/ul Monocytes # 0.6 10^3/ul Eosinophils # 0.4 10^3/ul Basophils # 0.0 10^3/ul Nucleated Red Blood Cells # 0.0 10^3/ul Urine Color YELLOW Urine Clarity CLOUDY Urine pH 7.0 Urine Specific [place] 1.019 Urine Ketones NEGATIVE mg/dL Urine Nitrite NEGATIVE mg/dL Urine Bilirubin NEGATIVE mg/dL Urine Urobilinogen NEGATIVE mg/dL Urine Leukocyte Esterase NEGATIVE Nidia/ul Urine Microscopic RBC 2 /HPF Urine Microscopic WBC 5 /HPF Urine Squamous Epithelial Cells MANY /HPF Urine Amorphous Crystals FEW /HPF Urine Bacteria FEW /HPF Urine Mucus FEW /HPF Urine Hemoglobin NEGATIVE mg/dL Urine Glucose NEGATIVE mg/dL Urine Total Protein NEGATIVE mg/dl Sodium Level 137 mmol/L Potassium Level 3.7 mmol/L Chloride Level 100 mmol/L Carbon Dioxide Level 28 mmol/L Anion Gap 9 Blood Urea Nitrogen 12 mg/dl Creatinine 0.73 mg/dl Est Glomerular Filtrat Rate mL/min > 60 mL/min Glucose Level 92 mg/dl Calcium Level 8.9 mg/dl Total Bilirubin 0.2 mg/dl Direct Bilirubin 0.00 mg/dl Indirect Bilirubin 0.2 mg/dl Aspartate Amino Transf (AST/SGOT) 32 IU/L Alanine Aminotransferase (ALT/SGPT) 22 IU/L Alkaline Phosphatase 42 IU/L Total Protein 7.4 g/dl Albumin 4.3 g/dl Globulin 3.10 g/dl Albumin/Globulin Ratio 1.38 Amylase Level 87 U/L Lipase 86 U/L POC Beta HCG, Qualitative NEGATIVE Current Medications Medications Dose Sig/Chrissy Start Time Status Last (Trade) Ordered Route PRN Stop Time Admin Dose Reason Admin Sodium 1,000 ml @ Q1H ONCE 06/09/18 DC 06/09/18 Chloride 1,000 mls/hr IV 01:00 00:57 06/09/18 01:59 Morphine 4 mg ONCE STAT 06/09/18 DC 06/09/18 Sulfate IV 00:32 00:57 (morphine) 06/09/18 00:35 Ondansetron 4 mg ONCE STAT 06/09/18 DC 06/09/18 HCl (Zofran IV 00:32 00:57 Inj) 06/09/18 00:35 1 mg ONCE STAT 06/09/18 DC 06/09/18 Hydromorphone IV 02:17 02:25 HCl 06/09/18 02:18 (Dilaudid) Sodium 100 ml @ ud STK-MED 4/18/19 DC 06/09/18 Chloride ONCE .ROUTE 03:07 03:08 06/09/18 03:08 Iohexol 150 ml STK-MED 06/09/18 DC 06/09/18 (Omnipaque ONCE .ROUTE 03:07 03:08 300mg/ ml) 06/09/18 03:08 Procedures/MDM Diagnostic tests: POC urine : Negative. Urinalysis: Reviewed. Culture urine: Sent. Blood works: Reviewed. Gallbladder ultrasound: Unremarkable ultrasound of the right upper abdomen. Post cholecystectomy. CT of the abdomen and pelvis with IV contrast: 1. Trace pelvic free fluid, nonspecific and likely physiologic. No additional acute findings. 2. Non-visualized appendix. 3. Slight prominence of the intrahepatic biliary system, likely chronic ectasia related to previous cholecystectomy. Treatment: Saline lock. Normal saline IV bolus. Morphine IV. Zofran IV. Re-evaluation: Denies pain. Negative Abreu sign. Negative Reuben sign (heel jar test). Negative psoas sign. Negative Rovsing sign. Able to jump 5 times without developing lower abdominal pain. No CVA tenderness. Able to tolerate steady gait without pain to abdomen. Stated that she feels much better at this time and that she is ready to go home. Differential diagnosis I have low suspicion for sepsis, pancreatitis, cholecystitis, diverticulitis, colitis with abscess, bowel obstruction, septic stone, obstructing kidney stone, nephrolithiasis, pyelonephritis, mesenteric ischemia. Final diagnosis: Abdominal pain. Constipation. Prescription: Tylenol. Zofran. Pepcid. Colace. Follow-up with PCP in the next 24-48 hours. Come back here in the emergency department for any new symptoms or any worsening symptoms. All questions and concerns were answered. Patient and family members verbalized understanding and agreed with plan of care. Hemodynamically stable on discharge. Departure Diagnosis: Primary Impression: Abdominal pain Condition: Stable Additional Instructions: Follow-up with PCP in the next 24-48 hours. Come back here in the emergency department for any new symptoms or any worsening symptoms. SHAREE CLARK Jun 09, 2018 00:31
[2018-06-09] MEDS ORDERED: morphine 4 MG/ML VIAL IV STA (00:32)
[2018-06-09] MEDS ORDERED: ONDANSETRON 4 MG INJ IV STA (00:32)
[2018-06-09] MEDS ORDERED: SOD CHLORIDE 0.9% 1,000 ML IV ONE (01:00)
[2018-06-09] MEDS ORDERED: HYDROmorphONE 0.5 MG/0.5 ML SYG IV STA (02:17)
[2018-06-09] MEDS ORDERED: ACET500C5 PO (02:33)
[2018-06-09] MEDS ORDERED: ONDA4TAB8 PO (02:33)
[2018-06-09] MEDS ORDERED: FAMO-96 PO (02:33)
[2018-06-09] MEDS ORDERED: DOCU-144 PO (02:42)
[2018-06-09 02:57] VITALS: BP 110/70; PULSE 78; RESP 17
[2018-06-09] MEDS ORDERED: SOD CHLORIDE 0.9% 100 ML ONE (03:07)
[2018-06-09] MEDS ORDERED: IOHEXOL 300MG/ML 150 ML BTL ONE (03:07)
== END 2018-06-09 03:31 | disposition home or self-care (01) ==
LOC: FTE 23:01
DX: K59.00 Constipation, unspecified (principal)
CPT/HCPCS: 74177; 76705; 80053; 81001; 81025; 82150; 83690; 85025; 87086; 96361; 96374; 96375; J1170; J2270; J2405; J7030; Q9967; Z7502; Z7610

== ENCOUNTER 2018-06-15 23:07 | Emergency (ER) | payer OTHER ==
[~2018-06-15] VITALS: Ht 162.6 cm; Wt 46.9 kg
[~2018-06-15 23:07] MED LIST changes: +ACET500C5 PO; +DOCU-144 PO; +FAMO-96 PO; +ONDA4TAB8 PO
[2018-06-15 23:16] VITALS: Ht 162.6 cm; Wt 46.9 kg
[2018-06-16] MEDS ORDERED: OCTREOTIDE 500 MCG in SOD CHLORIDE 0.9% 49 ML IV STA (01:06)
[2018-06-16] MEDS ORDERED: OCTREOTIDE 50 MCG in SOD CHLORIDE 0.9% 25 ML IVPB STA (01:06)
[2018-06-16] MEDS ORDERED: SOD CHLORIDE 0.9% 1,000 ML IV STA (01:06)
[2018-06-16] MEDS ORDERED: DEXTROSE 5%-0.45% NACL 1,000 ML IV SCH (06:01)
[2018-06-16 06:21] VITALS: BP 131/89; PULSE 85; RESP 16
[2018-06-16] MEDS ORDERED: ALBUTEROL/IPRATROPIUM (NEB) 3 ML AMP HHN PRN (06:30)
[2018-06-16] MEDS ORDERED: NACL 0.9% 3 ML SYG IV SCH (06:30)
[2018-06-16] MEDS ORDERED: ONDANSETRON 4 MG INJ IV PRN (06:30)
[2018-06-16] MEDS ORDERED: FAMOTIDINE 20 MG INJ IV SCH (09:00)
--- NOTE | 2018-07-04 20:58 | ERD ---
ER Documentation Chief Complaint Chief Complaint Pt reports hx GI bleed and vomiting blood x 3 today HPI Is a very pleasant 23-year-old female comes in with complaints of vomiting blood for 3 times today. Patient has a history of GI bleed in the past. Vomiting blood was bright red. No fevers no chills. No nausea no vomiting no abdominal pain. No other current complaints ROS All systems reviewed and are negative except as per history of present illness. Medications Home Meds Active Scripts Famotidine* (Pepcid*) 20 Mg Tablet, 40 MG PO DAILY for 30 Days, TAB Prov:MERCEDESILABANCLEVEAR F 06/09/18 Ondansetron Hcl* (Zofran*) 4 Mg Tablet, 4 MG PO Q6H PRN for NAUSEA, #30 TAB Prov:MERCEDESILABANCLEVEAR F 06/09/18 Reported Medications Ferrous Sulfate* (Ferrous Sulfate*) 325 Mg Tabec, 325 MG PO TID, TAB 03/31/18 Allergies Allergies: Coded Allergies: [email or web address] (Verified Allergy, Intermediate, BODY RASH , 06/08/18) PMhx/Soc History of Surgery: Yes (destiny, ovarian tumor) Anesthesia Reaction: No Hx Neurological Disorder: No Hx Respiratory Disorders: No Hx Cardiac Disorders: No Hx Psychiatric Problems: No Hx Miscellaneous Medical Probl: No (pancreatitis, high liver emzynes) Hx Alcohol Use: No Hx Substance Use: No Hx Tobacco Use: No Smoking Status: Never smoker Physical Exam Physical Exam Const: No acute distress Head: Atraumatic Eyes: Normal Conjunctiva ENT: Normal External Ears, Nose and Mouth. Neck: Full range of motion. No meningismus. Resp: Clear to auscultation bilaterally Cardio: Regular rate and rhythm, no murmurs Abd: Soft, non tender, non distended. Normal bowel sounds Skin: No petechiae or rashes Back: No midline or flank tenderness Ext: No cyanosis, or edema Neur: Awake and alert Psych: Normal Mood and Affect Results 24 hrs Laboratory Tests Test 06/16/18 01:22 06/16/18 01:39 White Blood Count 6.9 10^3/ul Red Blood Count 4.23 10^6/ul Hemoglobin 11.0 g/dl Hematocrit 34.5 % Mean Corpuscular Volume 81.6 fl Mean Corpuscular Hemoglobin 26.0 pg Mean Corpuscular Hemoglobin Concent 31.9 g/dl Red Cell Distribution Width 14.4 % Platelet Count 263 10^3/UL Mean Platelet Volume 9.1 fl Immature Granulocytes % 0.100 % Neutrophils % 35.8 % Lymphocytes % 47.5 % Monocytes % 11.5 % Eosinophils % 4.7 % Basophils % 0.4 % Nucleated Red Blood Cells % 0.0 /100WBC Immature Granulocytes # 0.010 10^3/ul Neutrophils # 2.5 10^3/ul Lymphocytes # 3.3 10^3/ul Monocytes # 0.8 10^3/ul Eosinophils # 0.3 10^3/ul Basophils # 0.0 10^3/ul Nucleated Red Blood Cells # 0.0 10^3/ul Prothrombin Time 12.3 Sec Prothrombin Time Ratio 1.0 INR International Normalized Ratio 0.90 Activated Partial Thromboplast Time 32.6 Sec Sodium Level 138 mmol/L Potassium Level 4.0 mmol/L Chloride Level 104 mmol/L Carbon Dioxide Level 25 mmol/L Anion Gap 9 Blood Urea Nitrogen 13 mg/dl Creatinine 0.72 mg/dl Est Glomerular Filtrat Rate mL/min > 60 mL/min Glucose Level 89 mg/dl Calcium Level 9.3 mg/dl Total Bilirubin 0.2 mg/dl Direct Bilirubin 0.00 mg/dl Indirect Bilirubin 0.2 mg/dl Aspartate Amino Transf (AST/SGOT) 33 IU/L Alanine Aminotransferase (ALT/SGPT) 41 IU/L Alkaline Phosphatase 42 IU/L Troponin I < 0.012 ng/ml Total Protein 7.3 g/dl Albumin 4.3 g/dl Globulin 3.00 g/dl Albumin/Globulin Ratio 1.43 POC Beta HCG, Qualitative NEGATIVE Current Medications Medications Dose Sig/Chrissy Start Time Status Last (Trade) Ordered Route PRN Stop Time Admin Dose Reason Admin Sodium 1,000 ml @ Q1H STAT 06/16/18 DC 06/16/18 Chloride 1,000 mls/hr IV 01:06 01:31 06/16/18 02:05 Octreotide 26 ml @ Q16M STAT 06/16/18 DC 06/16/18 Acetate 50 100 mls/hr IVPB 01:06 01:49 mcg/ Sodium 06/16/18 01:21 Chloride Octreotide 50 ml @ 5 ONCE STAT 06/16/18 DC 06/16/18 Acetate 500 mls/hr IV 01:06 01:49 mcg/ Sodium 06/16/18 06:59 Chloride 1,000 ml @ Q10H IV 06/16/18 DC Dextrose/Sodi 100 mls/hr 06:01 um Chloride 06/16/18 06:59 IV Flush 3 ml PER 06/16/18 DC (NS 3 ml) PROTOCOL IV 06:30 06/16/18 06:59 Ondansetron 4 mg Q6H PRN 06/16/18 DC HCl (Zofran IV 06:30 Inj) NAUSEA/VOMITI 06/16/18 06:59 NG Albuterol/ 3 ml Q2H RESP 06/16/18 DC Ipratropium THERAPY PRN 06:30 (Duoneb) HHN 06/16/18 06:59 SHORTNESS OF BREATH Famotidine 20 mg Q12 IV 06/16/18 DC (Pepcid Iv) 09:00 06/16/18 09:00 Procedures/MDM EKG: Rate/Rhythm: [Normal Sinus Rhythm] QRS, ST, T-waves: [No changes consistent w/ acute ischemia] Impression: [No evidence of ischemia or arrhythmia] Chest X-ray 1V Interpreted by me: Soft Tissue: No acute abnormalities Bones: No acute abnormalities Mediastinum/Cardiac Silhouette/Lungs: [No acute abnormalities] Medical decision making: This 23-year female with upper GI bleed with history of GI bleed. Start on Protonix. Patient will be admitted to further evaluation and management to the hospitalist group. Departure Diagnosis: Primary Impression: Hematemesis Nausea presence: unspecified Qualified Codes: K92.0 - Hematemesis Condition: AGUSTIN Millan July 04, 2018 20:58
== END 2018-06-16 06:59 | disposition left against medical advice (07) ==
LOC: E/R 23:07 → CANBEDREQ 06-16 11:36
DX: K92.0 Hematemesis (principal); R07.9 Chest pain, unspecified
CPT/HCPCS: 71045; 80053; 81025; 84484; 85025; 85610; 85730; 86850; 86900; 86901; 93005; J2354; J7030; J7042; Z7610; 36415; 96374; 96375

== ENCOUNTER 2018-08-05 20:39 | Emergency (ER) | payer OTHER ==
[~2018-08-05] VITALS: Ht 162.6 cm; Wt 45.9 kg
[~2018-08-05 20:39] MED LIST changes: -ACET500C5 PO; -DOCU-144 PO
[2018-08-05 20:46] VITALS: Ht 162.6 cm; Wt 45.9 kg
[2018-08-05] MEDS ORDERED: morphine 4 MG/ML VIAL IV STA (23:48)
[2018-08-05] MEDS ORDERED: ONDANSETRON 4 MG INJ IV STA (23:48)
[2018-08-06] MEDS ORDERED: DIPHENHYDRAMINE 50 MG INJ IV ONE
[2018-08-06] MEDS ORDERED: DEXAMETHASONE 10 MG/ML 1 ML INJ IM ONE
[2018-08-06] MEDS ORDERED: SOD CHLORIDE 0.9% 1,000 ML IV ONE
[2018-08-06] MEDS ORDERED: ALBUTEROL 0.083% (NEB) 2.5 MG/3 ML AMP HHN STA ×2 (00:18)
[2018-08-06] MEDS ORDERED: CEPH-443 PO (01:27)
[2018-08-06] MEDS ORDERED: PHEN-538 PO (01:27)
[2018-08-06] MEDS ORDERED: ONDA4TAB14 PO (01:29)
[2018-08-06] MEDS ORDERED: ACET500C5 PO (01:29)
[2018-08-06] MEDS ORDERED: LIDOCAINE/MYLANTA 40 ML BTL PO ONE (01:30)
[2018-08-06] MEDS ORDERED: PHENAZOPYRIDINE 100 MG TAB PO ONE (01:30)
[2018-08-06] MEDS ORDERED: CEFTRIAXONE 1 GM/50 ML (PMX) 50 ML IVPB ONE (01:30)
[2018-08-06] MEDS ORDERED: FAMOTIDINE 20 MG INJ IV ONE (01:30)
[2018-08-06] MEDS ORDERED: BELLADONNA/PHENOBARBITAL TAB PO ONE (01:30)
[2018-08-06] MEDS ORDERED: FAMO-96 PO (01:34)
[2018-08-06] MEDS ORDERED: DIPH25CA6 PO (01:35)
[2018-08-06 02:32] VITALS: BP 118/76; PULSE 88; RESP 20
--- NOTE | 2018-08-06 04:12 | ERD ---
ER Documentation Chief Complaint Chief Complaint redness on chest/legs x 1 day, on atb for 2 days, dx lyme disease HPI History of Present Illness: 23-year-old female who has a past medical history of Lyme disease coming in today with complaint of itching and redness to her chest and legs that is been present for 1 day. Patient also reports having left calf pain in which she spoke to her primary care doctor they did told her to come to the ER. Patient has associated symptoms of left lower quadrant abdominal pain, nausea, fever. At home pharmacological/nonpharmacological treatment for symptoms: Denies Denies social concerns; Denies recent foreign travel ROS All systems reviewed and are negative except as per history of present illness. Medications Home Meds Active Scripts Diphenhydramine Hcl* (Diphenhydramine Hcl*) 25 Mg Capsule, 25 MG PO Q8 PRN for ITCHING/RASH, #30 CAP Prov:BREN HODGE V [employer] 08/06/18 Famotidine* (Pepcid*) 20 Mg Tablet, 40 MG PO BID for ABDOMINAL BURNING/ACID REFLUX for 30 Days, TAB Prov:BREN HODGE [employer] 08/06/18 Acetaminophen* (Tylophen*) 500 Mg Capsule, 2 CAP PO Q6 PRN for PAIN AND OR ERLIN VATED TEMP, #20 CAP Prov:BREN HODGE [employer] 08/06/18 Ondansetron (Ondansetron Odt) 4 Mg Tab.rapdis, 4 MG PO Q6H PRN for NAUSEA AND/OR VOMITING, #10 TAB Prov:BREN HODGE [employer] 08/06/18 Phenazopyridine Hcl* (Pyridium*) 200 Mg Tab, 200 MG PO TID PRN for URINARY PAIN, #5 TAB Prov:BREN HODGE [employer] 08/06/18 Cephalexin* (Keflex*) 500 Mg Capsule, 500 MG PO QID for URINE INFECTION for 7 Days, CAP Prov:BREN HODGE [employer] 08/06/18 Famotidine* (Pepcid*) 20 Mg Tablet, 40 MG PO DAILY for 30 Days, TAB Prov:PASILACLEVE ORTIZAR F 06/09/18 Ondansetron Hcl* (Zofran*) 4 Mg Tablet, 4 MG PO Q6H PRN for NAUSEA, #30 TAB Prov:PASILABANSHAREE 06/09/18 Reported Medications Ferrous Sulfate* (Ferrous Sulfate*) 325 Mg Tabec, 325 MG PO TID, TAB 03/31/18 Allergies Allergies: Coded Allergies: lansoprazole (Verified Allergy, Intermediate, BODY RASH , 06/08/18) PMhx/Soc History of Surgery: Yes (destiny, ovarian tumor) Anesthesia Reaction: No Hx Neurological Disorder: No Hx Respiratory Disorders: No Hx Cardiac Disorders: No Hx Psychiatric Problems: No Hx Miscellaneous Medical Probl: No (pancreatitis, high liver emzynes) Hx Alcohol Use: No Hx Substance Use: No Hx Tobacco Use: No Smoking Status: Never smoker Physical Exam Vitals Vital Signs Date Temp Pulse Resp B/P (MAP) Pulse Ox O2 O2 Flow FiO2 Time Delivery Rate 08/06/18 97.9 88 20 118/76 99 Room Air 02:32 (90) 08/05/18 100.1 115 20 168/73 100 20:46 (104) Physical Exam Const: No acute distress, febrile Head: Atraumatic Eyes: Normal Conjunctiva ENT: Normal External Ears, Nose and Mouth. Oropharynx clear without tonsillar exudate. Tympanic membranes without erythema, no bulging, no perforation. Neck: Full range of motion. No meningismus. Resp: Clear to auscultation bilaterally Cardio: Tachycardia at 112, no murmurs Abd: Soft, tenderness to palpation to left lower quadrant, non distended. Mild guarding. no masses, no rigidity Skin: No petechiae; rash noted to chest, erythema, macular papular consistent with allergic reaction Back: No midline or flank tenderness Ext: No cyanosis, or edema; negative Homans sign, tenderness to palpation to left calf Neur: Awake and alert x3, speaking in clear sentences, no focal deficits or facial asymmetry Psych: Normal Mood and Affect Result Diagram: 08/06/18608/06/186 Results 24 hrs Laboratory Tests Test 08/06/18 00:07 08/06/18 00:10 08/06/18 00:20 White Blood Count 6.4 10^3/ul Red Blood Count 4.65 10^6/ul Hemoglobin 12.2 g/dl Hematocrit 38.4 % Mean Corpuscular Volume 82.6 fl Mean Corpuscular Hemoglobin 26.2 pg Mean Corpuscular 31.8 g/dl Hemoglobin Concent Red Cell Distribution Width 17.2 % Platelet Count 282 10^3/UL Mean Platelet Volume 8.6 fl Immature Granulocytes % 0.200 % Neutrophils % 71.5 % Lymphocytes % 17.2 % Monocytes % 7.2 % Eosinophils % 3.4 % Basophils % 0.5 % Nucleated Red Blood Cells % 0.0 /100WBC Immature Granulocytes # 0.010 10^3/ul Neutrophils # 4.6 10^3/ul Lymphocytes # 1.1 10^3/ul Monocytes # 0.5 10^3/ul Eosinophils # 0.2 10^3/ul Basophils # 0.0 10^3/ul Nucleated Red Blood Cells # 0.0 10^3/ul Urine Color YELLOW Urine Clarity CLOUDY Urine pH 6.0 Urine Specific [place] 1.026 Urine Ketones NEGATIVE mg/dL Urine Nitrite NEGATIVE mg/dL Urine Bilirubin NEGATIVE mg/dL Urine Urobilinogen 1+ mg/dL Urine Leukocyte Esterase NEGATIVE Nidia/ul Urine Microscopic RBC 3 /HPF Urine Microscopic WBC 1 /HPF Urine Squamous Epithelial Cells MANY /HPF Urine Calcium Oxalate Crystals MANY /HPF Urine Bacteria FEW /HPF Urine Hemoglobin NEGATIVE mg/dL Urine Glucose NEGATIVE mg/dL Urine Total Protein NEGATIVE mg/dl Sodium Level 138 mmol/L Potassium Level 3.6 mmol/L Chloride Level 104 mmol/L Carbon Dioxide Level 29 mmol/L Anion Gap 5 Blood Urea Nitrogen 10 mg/dl Creatinine 0.69 mg/dl Est Glomerular Filtrat > 60 mL/min Rate mL/min Glucose Level 89 mg/dl Calcium Level 8.7 mg/dl Total Bilirubin 0.3 mg/dl Direct Bilirubin 0.00 mg/dl Indirect Bilirubin 0.3 mg/dl Aspartate Amino Transf (AST/SGOT) 30 IU/L Alanine 22 IU/L Aminotransferase (ALT/SGPT) Alkaline Phosphatase 39 IU/L Total Protein 6.9 g/dl Albumin 4.0 g/dl Globulin 2.90 g/dl Albumin/Globulin Ratio 1.37 POC Beta HCG, Qualitative NEGATIVE NEGATIVE Current Medications Medications Dose Sig/Chrissy Start Time Status Last (Trade) Ordered Route PRN Stop Time Admin Dose Reason Admin Sodium 1,000 ml @ Q1H ONCE 08/06/18 DC 08/06/18 Chloride 1,000 mls/hr IV 00:00 00:25 08/06/18 00:59 Ondansetron 4 mg ONCE STAT 08/05/18 DC 6/15/19 HCl (Zofran IV 23:48 00:24 Inj) 08/05/18 23:52 Morphine 4 mg ONCE STAT 08/05/18 DC 08/06/18 Sulfate IV 23:48 00:24 (morphine) 08/05/18 23:52 8 mg ONCE ONCE 08/06/18 DC 08/06/18 Dexamethasone IM 00:00 00:27 (Decadron) 08/06/18 00:01 25 mg ONCE ONCE 08/06/18 DC 08/06/18 Diphenhydrami IV 00:00 00:25 ne HCl 08/06/18 00:01 (Benadryl) Albuterol 1.25 mg ONCE STAT 08/06/18 DC (Proventil HHN 00:18 0.083% (Neb)) 08/06/18 00:27 Albuterol 1.25 mg ONCE STAT 08/06/18 DC (Proventil HHN 00:18 0.083% (Neb)) 08/06/18 00:27 Famotidine 20 mg ONCE ONCE 08/06/18 DC 08/06/18 (Pepcid Iv) IV 01:30 01:41 08/06/18 01:31 40 ml ONCE ONCE 08/06/18 DC 08/06/18 Miscellaneous PO 01:30 01:40 Medication 08/06/18 01:31 (Gi Cocktail (2)) Belladonna/ 1 tab ONCE ONCE 08/06/18 DC 08/06/18 Phenobarbital PO 01:30 01:42 () 08/06/18 01:31 200 mg ONCE ONCE 08/06/18 DC 08/06/18 Phenazopyridi PO 01:30 01:41 ne HCl 08/06/18 01:31 (Pyridium) Ceftriaxone 50 ml @ ONCE ONCE 08/06/18 DC 08/06/18 Sodium 100 mls/hr IVPB 01:30 01:41 08/06/18 01:59 Procedures/MDM ED course includes a thorough examination and history. Medications: IV NS, acetaminophen, dexamethasone, Zofran, diphenhydramine, morphine Imaging: Venous lower extremity left, CT abdomen pelvis without contrast, non-OB pelvic ultrasound Labs: CBC, CMP, urinalysis, urine Low suspicion for life-threatening medical emergency. Low suspicion for acute abdominal emergency requires hospitalization or immediate surgical intervention. Low suspicion for gynecologic emergency that requires hospitalization or immediate surgical intervention, ovarian cyst is 1.8 cm, low risk for ovarian torsion due to size. patient presenting with constellation of symptoms likely representing urinary tract infection, left ovarian cyst as characterized by history, physical exam findings, lab findings, imaging findings. CBC: no e/o of systemic infection or severe anemia. CMP: no e/o severe acidosis, alkalosis, renal failure, diabetic ketoacidosis, liver disease. Urinalysis positive for few bacteria. Doppler results showing: \IMPRESSION: No evidence of deep venous thrombosis within the left lower extremity. .Jesus Campa MD, Date Time Electronically viewed and signed by .Jesus Campa MD, on 08/06/2018 01:08 CT results showing: IMPRESSION: No acute abnormality identified within the abdomen and pelvis. Nonobstructing left renal calculus. Status post cholecystectomy. .Jesus Campa MD, MD Date Time Electronically viewed and signed by .Jesus Campa MD, MD on 08/06/2018 01:12 Pelvic ultrasound showing: IMPRESSION: Left ovarian 1.8 cm simple cyst. Otherwise unremarkable pelvic ultrasound. .Jesus Campa MD, Date Time Electronically viewed and signed by .Jesus Campa MD, on 08/06/2018 01:13 Patient reassessment at 0120: Denies left lower quadrant pain. Reports signif icant epigastric burning rating 9/10. Results discussed. Vital signs within normal limits, patient afebrile. Orders placed for GI cocktail, , IV Pepcid. Patient reassessment 0220: Patient denies pain. Patient hemodynamically stable. No respiratory distress, otherwise relatively well appearing and nontoxic. Disposition given. Patient educated on diagnoses, prescriptions, follow-up c are, return precautions. Strict return precautions given for worsening condition; questions answered discharge. Verbalization of return precautions and follow-up care. Disposition for discharge with followup in 2 days with PCP/clinic. Departure Diagnosis: Primary Impression: Fever Fever type: unspecified Qualified Codes: R50.9 - Fever, unspecified Additional Impressions: Epigastric burning sensation History of Lyme disease Pain of left lower extremity due to injury UTI (urinary tract infection) Urinary tract infection type: site unspecified Hematuria presence: with hematuria Qualified Codes: N39.0 - Urinary tract infection, site not specified; R31.9 - Hematuria, unspecified Left ovarian cyst Rash Condition: Stable Patient Instructions: Urinary Tract Infections in Women, Gerd (Adult), Kidney Stone, Undescended (No Symptoms) Referrals: [facility] YOU HAVE RECEIVED A MEDICAL SCREENING EXAM AND THE RESULTS INDICATE THAT YOU DO NOT HAVE A CONDITION THAT REQUIRES URGENT TREATMENT IN THE EMERGENCY DEPARTMENT. FURTHER EVALUATION AND TREATMENT OF YOUR CONDITION CAN WAIT UNTIL YOU ARE SEEN IN YOUR DOCTORS OFFICE WITHIN THE NEXT 1-2 DAYS. IT IS YOUR RESPONSIBILITY TO MAKE AN APPOINTMENT FOR FOLOW-UP CARE. IF YOU HAVE A PRIMARY DOCTOR --you should call your primary doctor and schedule an appointment IF YOU DO NOT HAVE A PRIMARY DOCTOR YOU CAN CALL OUR PHYSICIAN REFERRAL HOTLINE AT IF YOU CAN NOT AFFORD TO SEE A PHYSICIAN YOU CAN CHOSE FROM THE FOLLOWING [facility] [address] [facility]. [facility] [address] [facility] [facility] [address] [facility] [facility] [address] [facility] [address] [facility]. [facility] [address] [facility]. [facility] YOU HAVE RECEIVED A MEDICAL SCREENING EXAM AND THE RESULTS INDICATE THAT YOU DO NOT HAVE A CONDITION THAT REQUIRES URGENT TREATMENT IN THE EMERGENCY DEPARTMENT. FURTHER EVALUATION AND TREATMENT OF YOUR CONDITION CAN WAIT UNTIL YOU ARE SEEN IN YOUR DOCTORS OFFICE WITHIN THE NEXT 1-2 DAYS. IT IS YOUR RESPONSIBILITY TO MA KE AN APPOINTMENT FOR FOLOW-UP CARE. IF YOU HAVE A PRIMARY DOCTOR --you should call your primary doctor and schedule and appointment IF YOU DO NOT HAVE A PRIMARY DOCTOR YOU CAN CALL OUR PHYSICIAN REFERRAL HOTLINE AT . IF YOU CAN NOT AFFORD TO SEE A PHYSICIAN YOU CAN CHOSE FROM THE FOLLOWING [facility] INSTITUTIONS: [facility] [address] [place] [address] [facility] [address] [place] [address] [facility] [address] [place] [address] Additional Instructions: Thank you very much for allowing us to participate in your care. Your health and safety is our top priority at [facility]. It is important to read all discharge instructions and education provided in your discharge packet. Call your primary care doctor TOMORROW for an appointment during the next 2-4 days and bring all the information and medications prescribed. Have prescriptions filled and follow precisely the directions on the label. -Pyridium is a medication that will help decrease urinary pain. This medication will make your urine turn orange. This is a normal side effect of the medication. -Zofran is a medication for nausea/vomitting; take this medication as needed for nausea/vomiting/decreased appetite. -Cephalexin is an antibiotic; take this medication every day as listed on your prescription. You must complete the entire course of treatment that is listed on your prescription this is very important because it takes a certain number of days to kill the bacteria that is causing the infection. -Diphenhydramine is an antihistamine that should cause drowsiness; take this medication every day for allergy-like symptoms/cough/runny nose/RASH. --Famotidine is a medication that will help with acid reflux; take this medication as prescribed for the next 1 to 2 weeks with lunch and dinner. Report to your primary care doctor if the nausea is no longer present with this medication. If so, it is highly likely that your acid reflux is causing your nausea. --Acetaminophen as a medication for pain and/or fever. Take this medication as needed for mild to moderate pain. This medication will not cause drowsiness. It is important to take this medication every 6-8 hours as prescribed to prevent fever complications. If the symptoms get worse and your provider is unavailable, return to the Emergency Department immediately. BREN HODGE NP Aug 06, 2018 04:10
== END 2018-08-06 02:33 | disposition home or self-care (01) ==
LOC: FTE 20:39
DX: M79.662 Pain in left lower leg (principal); N39.0 Urinary tract infection, site not specified; N83.202 Unspecified ovarian cyst, left side; A69.20 Lyme disease, unspecified; R21 Rash and other nonspecific skin eruption; R10.2 Pelvic and perineal pain
CPT/HCPCS: 74176; 76830; 76856; 80053; 81001; 81025; 85025; 93971; 96372; 96374; 96375; J0696; J1100; J1200; J2270; J2405; J7030; Z7502; Z7610